=== PATIENT | female | born 1945 | race Caucasian/White ===

== ENCOUNTER 2016-06-21 18:07 | Observation (INO) | payer MEDICARE ==
[~2016-06-21] VITALS: Ht 162.6 cm; Wt 80.0 kg
[~2016-06-21 18:07] MED LIST: CEFU500T PO; FLUT9.9S NASAL
[2016-06-21 18:09] VITALS: BP 136/66; RESP 22; O2SAT 96
[2016-06-21 19:19] VITALS: BP 126/66; PULSE 74; RESP 23; O2SAT 98
[2016-06-21] MEDS ORDERED: EPINEPHrine 1 mg/mL Inj 10 MG in 0.9% Sodium Chloride 240 ML ONE (20:05)
[2016-06-21] MEDS ORDERED: 0.9% Sodium Chloride 1,000 ML IV ONE (20:05)
[2016-06-21] MEDS ORDERED: MethylprednisoLONE Sodium Succinate 62.5 mg/mL 2 mL Inj IVPUSH ONE (20:05)
[2016-06-21] MEDS ORDERED: Famotidine Inj 20 MG in IV Premix 1 EACH IV ONE (20:05)
[2016-06-21 20:48] LABS: APPEARANCE,URINE CLEAR (CLEAR,HAZY); COLOR,URINE YELLOW (YELLOW); OCCULT BLOOD,URINE NEGATIVE (NEGATIVE); UROBILINOGEN,URINE NORMAL (NORMAL)
--- NOTE | 2016-06-21 20:59 | DRSVH ---
PROCEDURE: X-RAY CHEST ONE VIEW, PORTABLE ([id number]) INDICATIONS: Altered mental status TECHNIQUE: One view of the chest was acquired. COMPARISON: [facility], CR, XR CHEST 2VW, 06/18/2015, 12:46. [facility], CR , XR CHEST 1VW (PORTABLE), 06/18/2015, 16:25. FINDINGS: Surgical changes and devices: None. Lungs and pleura: No pleural effusions or pneumothorax. Lungs are edematous. Mediastinum: Mediastinal contours appear normal. Heart size is prominently globally enlarged, to a greater degree than that present seen only 3 days ago. Bones and chest wall: No suspicious bony lesions. Overlying soft tissues appear unremarkable. IMPRESSION: Worsening chronic CHF pattern, increased cardiac silhouette. Dictated by: Hong Vieira M.D. on 06/21/2016 at 20:58 Approved by: Hong Vieira M.D. on 06/21/2016 at 20:58
--- NOTE | 2016-06-21 21:12 | DRSVH ---
PROCEDURE: CT BRAIN WITHOUT CONTRAST ([id number]) INDICATIONS: Dizziness and Horizontal nystagmus TECHNIQUE: Noncontrast 4.5 mm thick angled axial sections acquired from the foramen magnum to the vertex, with c oronal reformats. COMPARISON: None. FINDINGS: Image quality: Excellent. CSF spaces: Basal cisterns are patent. No extra-axial fluid collections. Ventricles are normal in size and shape. Brain: No midline shift. No intracranial masses or hemorrhage. Goel-white matter interface is norm al. Skull and face: Calvarium and visualized facial bones are intact, without suspicious lesions. Sinuses: Visualized sinuses and mastoids are clear. IMPRESSION: No source of current symptoms is found. The study appears normal for age. Dictated by: Hong Vieira M.D. on 06/21/2016 at 21:10 Approved by: Hong Vieira M.D. on 06/21/2016 at 21:10
[2016-06-21 21:29] LABS: BASOPHILS % (AUTO) 0.2 % (0-3); EOSINOPHILS % (AUTO) 0.2 % (0-5); MONOCYTES % (AUTO) 2.8 % (4-12); Mean Corpuscular Hemoglobin 25.8 pg (27.0-35.0); Mean Corpuscular Volume 86.8 fL (81-100); NEUTROPHILS % (AUTO) 90.9 % (40-74); Platelet Count 274 bil/L (150-400)
[2016-06-21] MEDS ORDERED: Alum-Mag Hydrox-Simeth 30 mL Suspension PO PRN (21:50)
[2016-06-21] MEDS ORDERED: Ondansetron 2 mg/mL 2 mL Inj IVPUSH PRN (21:50)
--- NOTE | 2016-06-21 21:55 | ED.REPORT ---
HPI-Dizziness / Weakness Date of Service Jun 21, 2016 ED Provider: Joshua Lewis MD History of Present Illness: Ms. 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 She has experienced similar symptoms before that resolved within 2 hours. She also has a three-week history of right ear pressure and loss of hearing, for which she was treated with antibiotics twice as an outpatient. She lives alone without any help in her house. She has received meclizine which seems to have helped with her symptoms of nausea vomiting and dizziness. 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 The findings may represent progression of reported chronic interstitial lung disease vs superimposed pulmonary edema due to cardiogenic or noncardiogenic etiologies such as atypical infection. 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 Complete sys rev & neg: except as marked. Physical Exam Physical Exam Notes: General: Elderly lady lying in bed in no acute distress, well-developed, well-nourished, appropriately interactive. HEENT: Normocephalic, atraumatic. External ears without defect. Pupils equal, round, and reactive to light and accommodation. Anicteric sclerae, moist conjunctivae, and no lid lag. Oropharynx free of erythema and cobble stoning with moist mucosa. Horizontal nystagmus present. Neck: Supple with full range of motion. No jugular venous distension. No bruits. No lymphadenopathy or thyromegaly. Cardiovascular: Regular rate and rhythm with no murmurs or gallops, with mild rubs appreciated Pulmonary: Clear to auscultation bilaterally with no crackles, wheezes, or rhonchi. Normal respiratory effort with no use of accessory muscles. Abdomen: Bowel tones present. Soft, nontender, nondistended. No hepatosplenomegaly or masses appreciated. Extremities: No clubbing, cyanosis, edema, or lymphadenopathy appreciated. Skin: Normal temperature, turgor, and texture; no rash, ulcers, or subcutaneous nodules appreciated. Neurological: Cranial nerves grossly intact. Normal muscle strength, tone, and bulk. Reflexes, coordination, and sensory function within normal limits. Psychiatric: Normal mood and affect. Alert and oriented to person, place, and time. Initial Vital Signs Vital Signs (First) Date Time Temp Pulse Resp B/P Pulse Ox O2 Delivery O2 Flow Rate FiO2 06/21/16 18:09 37.4 79 22 136/66 96 Nasal Cannula 6 Interpretation & Diagnostics Lab Results Interpretation Result Diagram: 06/21/16205406/21/162054 Test 06/21/16 20:22 06/21/16 20:55 Urine Color Yellow (YELLOW) Urine Appearance Clear (CLEAR,HAZY) Urine pH 8.0 (5.0-8.0) Urine Specific Agenda 1.020 (1.003-1.035) Urine Protein Negativemg/dL (NEG,TRACE) Urine Glucose (UA) 100mg/dL (NEGATIVE) Urine Ketones 40mg/dL (NEGATIVE) Urine Occult Blood Negative (NEGATIVE) Urine Nitrite Negative (NEGATIVE) Urine Bilirubin Negative (NEGATIVE) Urine Urobilinogen Normalmg/dL (NORMAL) Urine Leukocyte Esterase Trace (NEGATIVE) Urine RBC 0-2/hpf (0-2) Urine WBC 0-5/hpf (0-5) Urine Epithelial Cells None/hpf (NONE-MOD) Urine Crystals None seen (NONE SEEN) Urine Bacteria Few/hpf (NONE-FEW) Urine Hyaline Casts None/lpf (NONE) Urine Granular Casts None seen (NONE SEEN) Urine Waxy Casts None seen (NONE SEEN) Urine Red Blood Cell Casts None seen (NONE SEEN) Urine White Blood Cell Casts None seen (NONE SEEN) Urine Mucus Present (None Seen) Urine Trichomonas None seen (NONE SEEN) Urine Yeast None (NONE SEEN) Urinalysis Comment None Urine Culture Reflexed Indicated White Blood Count 10.0th/mm3 (3.8-10.1) Red Blood Count 4.23mil/mm3 (3.90-5.20) Hemoglobin 10.9g/dL (12.0-15.6) Hematocrit 36.7% (35.0-46.0) Mean Corpuscular Volume 86.8fL (81-100) Mean Corpuscular Hemoglobin 25.8pg (27.0-35.0) Mean Corpuscular Hemoglobin Concent 29.7% (32.0-37.0) Red Cell Distribution Width 14.4% (12.3-15.4) Platelet Count 274bil/L (150-400) Neutrophils (%) (Auto) 90.9% (40-74) Lymphocytes (%) (Auto) 5.6% (14-46) Monocytes (%) (Auto) 2.8% (4-12) Eosinophils (%) (Auto) 0.2% (0-5) Basophils (%) (Auto) 0.2% (0-3) Sodium Level 137mEq/L (134-144) Potassium Level 3.8mEq/L (3.5-5.2) Chloride Level 100mEq/L (97-108) Carbon Dioxide Level 28mmol/L (18-29) Blood Urea Nitrogen 7mg/dL (8-27) Creatinine 0.54mg/dL (0.57-1.00) Estimat Glomerular Filtration Rate 160mL/min (>59) Glucose Level 184mg/dL (60-99) Lactic Acid Level 1.1mmol/L (0.4-2.0) Calcium Level 8.9mg/dL (8.5-10.1) Magnesium Level 1.7mg/dL (1.6-2.6) Total Bilirubin 0.2mg/dL (0.0-1.2) Aspartate Amino Transf (AST/SGOT) 10U/L (0-50) Alanine Aminotransferase (ALT/SGPT) 7U/L (0-32) Alkaline Phosphatase 48U/L (25-165) Total Protein 5.8g/dL (6.4-8.4) Albumin 3.4g/dL (3.4-5.0) Procedures Procedure Notes: Re-Eval/Medical Decision Med Decision/Clinical Course Ms. Glasgow yesterday is a 8-year-old who lives alone and is currently unable to ambulate without falling due to dizziness, horizontal nystagmus, nausea and vomiting. She is not safe to go home, therefore she is to be admitted as observational status. Patient Discharge & Departure Shift Change Sign-Out Patient Care Transferred: Yes Discussed Complaint(s): Yes Laboratory Evaluation: Lab evaluation discussed Imaging Studies: Imaging discussed Response to Therapy: Unchanged Impression: Primary Impression: Peripheral vertigo Laterality: right Qualified Code: H81.391 - Other peripheral vertigo, right ear Additional Impressions: Failure to thrive Failure to thrive age range: in adult Qualified Code: R62.7 - Adult failure to thrive Ear pain, right Weakness Disposition: ADMITTED TO HOSPITAL Discharge Condition All VS Reviewed: Yes Condition: Stable Referrals: Marques Buchanan MD (PCP) EDSupervising Provider for APC: Joshua Lewis MD Attending Statement Attending attestation: I saw this patient in conjunction with the above named resident. I was present for all granda portions of the history taking and physical examination. I agree with the workup, evaluation, treatment and disposition. JOSE JUAN Ugarte MD, DO Jun 21, 2016 20:04 Joshua Lewis MD Jun 21, 2016 23:41
[2016-06-21] MEDS ORDERED: HYDROcodone-APAP 5-325 mg Tablet PO PRN (23:35)
[2016-06-21] MEDS: 0.9% Sodium Chloride 1,000 ML IV SCH (23:35)
[2016-06-21] MEDS ORDERED: TREP1TAB PO ×2 (23:46→23:57)
--- NOTE | 2016-06-21 23:54 | PCM.HPMED ---
Subjective Date of Service Jun 21, 2016 Primary Provider: Admitting Physician: Primary Care Physician: Marques Buchanan MD Attending Physician: Chief Complaint: Dizziness History of Present Illness: 71 yo F with history of CREST syndrome with subsequent pulmonary fibrosis, pulmonary hypertension, and pericardial effusions, HTN, and Hypothyroidism who presented to the ED with dizziness, nausea, and vomiting that started earlier this afternoon. She was using her computer when the room suddenly started spinning, which resulted in nausea/vomiting. She reports experiencing this intermittently in the past, with usual episodes resolving in 1-2 hours, but states the new symptoms of diaphoresis, weakness, nausea and vomiting made her come into the hospital. She denies any tinnitus, CP, cough, increase in her AGUILAR , fevers, or abdominal pain. She also report that in the past year she has been getting intermittently dizzy and has been noticing low pitch hearing loss, R>L. She denies any urinary symptoms currently, but notes that she is currently on a 2nd course of Amoxicillin for treatment of a UTI from a few weeks ago. She states that she had a right ear bulging and pressure 3 weeks ago, so she was also give Amoxicillin then. Also of note, patient was diagnosed with Colon Cancer this past summer and has not pursued treatment. She endorses diarrhea daily and uses loperamide to control it. In the ER her vitals were stable and within normal limits. She was saturating between 96 and 98% on 6 L NC. Her CMP was reassuring, but her CBC shows a hemoglobin of 10.9, white count of 10, segs of 90.9%. Her UA was positive for trace leukocytes, but no nitrites or blood. Review of Systems: Complete ROS negative except as stated in HPI Allergies Coded Allergies: Sulfa (Sulfonamide Antibiotics) (Verified Allergy, Intermediate, Nausea, Vomiting, 06/21/16) morphine (Verified Allergy, Unknown, HIVES, 06/21/16) Home Medications She is on 3 medications for pulmonary hypertension that we do not have here and she will be bringing in herself PMH CREST syndrome Pulmonary Fibrosis Pulmonary Hypertension Pericardial Effusions Essential HTN Hypothyroidism GERD Colon Cancer diagnosed via CT in 10/2015 Surgical History Tonsillectomy Cholecystectomy Partial Hysterectomy Left Knee x3 Esophageal tightening due to GERD Family History Lung Cancer Lymphoma Colon Cancer Social History Hx Alcohol Use: No Hx Substance Use: No Living Arrangement: Alone Exam Vital Signs Vital Sign - Last Date Time Temp Pulse Resp B/P Pulse Ox O2 Delivery O2 Flow Rate FiO2 06/21/16 19:19 74 23 126/66 98 Nasal Cannula 6 06/21/16 18:09 37.4 Exam Gen - Age appropriate female laying comfortably in bed and on oxygen in [facility], [facility]. Membranes dry but pink in color. No scleral icterus or pallor. Hearing decreased on right side. Right beating Horizontal Nystagmus. Also seen on test of Skew and Head impulse testing. Neck - Supple, without pain, full ROM. No JVD noted Cardiac - RRR, with 3/6 coarse systolic murmur. Lungs - CTA bilaterally, decreased air movement but no wheezes/rales/rhonchi. Abd - Soft, NT/ND, +BS. No organomegaly, guarding, or masses. Extremities - No clubbing or cyanosis, no edema. Neuro -CN 2-12 intact. Muscle strength 5/5 in all extremities, reflexes normal. Psych - Normal mood and affect, appropriate in response. Lab and Diagnostics Result Diagram: 06/21/162054 X-Rays, CTs and MRIs X-RAY CHEST ONE VIEW, PORTABLE ([id number]) IMPRESSION: Worsening chronic CHF pattern, increased cardiac silhouette. Dictated by: Hong Vieira M.D. on 06/21/2016 at 20:58 CT BRAIN WITHOUT CONTRAST ([id number]) IMPRESSION: No source of current symptoms is found. The study appears normal for age. Dictated by: Hong Vieira M.D. on 06/21/2016 at 21:10 Assessment & Plan 71 yo F with h/o CREST syndrome, Pulmonary fibrosis with Pulmonary HTN, recently diagnosed Colon Cancer, and Hypothyroidism who presents for acute onset of Vertigo today. With her reassuring head CT and HiNTS exam, this is unlikely a central source, but will likely need an MRI to r/o. From her history of low pitch hearing loss and intermittent dizziness, Meniere's disease is suspicious. She did report a recent right ear infection that required antibiotics, but ear exam was unremarkable. She also has an abnormal UA and has been treated with antibiotics for a UTI infection in the past 2 weeks. This could also be a cause of her vertigo. #Vertigo, acute -Currently dizzy, but n/v has improved. Will continue Meclizine and anti- emetics medications prn. -HiNTS exam reassuring and initial brain CT unremarkable. DDx, posterior infarct , mets disease, labyrinthitis, Meniere's, infection -Although less likely, will require MRI to rule out posterior infarcts or metastatic disease from her Colon Cancer. Will defer to Day team to order. -Will also await UA culture before starting any Antibiotics since patient does not complain of urinary symptoms currently. This could also be a source of her dizziness. -With her complaint of hearing loss in the past year and transient intermittent dizziness, she likely has Meniere's disease and should be evaluated by ENT as an outpatient. Low dose diuretic and low sodium diet would be helpful for prophylaxis on discharge. #CREST syndrome with resulting pulmonary fibrosis and pulmonary hypertension, POA -Patient is on 8L O2 at home at baseline, she is currently stable. She plans to bring in her home medications: Orenitram, Adcirca, and Letairis -Her Bonbon Cream Warmer is in [place]. -Continue home meds. #Colon Cancer diagnosed via CT in 10/2015, POA -Per patient, she wishes not to pursue any further treatment for this condition. -She does continue to have diarrhea daily and uses Loperamide frequently for symptomatic control -Consider Palliative/Hospice consult -Loperamide prn diarrhea and IV NS 100mls/hr for fluids #Hypothyroidism, POA -Patient reports her LT4 was recently titrated upwards last year -TSH/FT4 pending -Continue LT4 #GERD, POA -Patient reports multiple surgeries to tighten lower esophageal sphincter by Dr. Cr Yadav -H2 vito for prophylaxis #Hypertension, chronic, POA -Stable, currently not on any medications for HTN per patient. Vicodin 5/325mg prn pain Bowel Regimen prn constipation Pain Evaluation: Adequate Pain Control VTE Prophylaxis: Sub-Q Heparin (Unfractionated) Resuscitation Status: DNR/DNI:Do Not Resuscitate/Intubate Attending Statement The patient was seen and examined together with Dr. Lindsay on 06/21/16 and I agree with the history, exam and plan as outlined in the note above. Anthony Lindsay DO Jun 21, 2016 21:44 Roscoe Melgoza MD Jun 21, 2016 23:58
[2016-06-21] MEDS ORDERED: MYCO500T3 PO (23:57)
[2016-06-21] MEDS ORDERED: LEVO75TA4 PO (23:57)
[2016-06-21] MEDS ORDERED: TORS20TA3 PO (23:57)
[2016-06-21] MEDS ORDERED: PRD5T PO (23:57)
[2016-06-21] MEDS ORDERED: SPIR25TA3 PO (23:57)
[2016-06-21] MEDS ORDERED: ATRV10T PO (23:57)
[2016-06-21] MEDS ORDERED: TRAZ-118 PO (23:57)
[2016-06-21] MEDS ORDERED: AMBR10TA3 PO (23:57)
[2016-06-21] MEDS ORDERED: CALC600T12 PO (23:57)
[2016-06-21] MEDS ORDERED: TADA20TA31 PO (23:57)
[2016-06-21] MEDS ORDERED: ASPI-973 PO (23:57)
[2016-06-21] MEDS ORDERED: NIFE60TA62 PO (23:57)
[2016-06-21] MEDS ORDERED: ESOM40CA41 PO (23:57)
[2016-06-22 00:22] VITALS: BP 129/71; PULSE 76; RESP 17
[2016-06-22] MEDS: Heparin 5,000 Unit/mL Inj SUBQ SCH ×2 (00:30→08:30)
[2016-06-22] MEDS: TREPROSTINIL DIOLAMINE 1 MG PO SCH ×2 (00:48→08:30)
[2016-06-22] MEDS ORDERED: POTA10TA12 PO (01:47)
[2016-06-22 01:48] VITALS: PULSE 78
--- NOTE | 2016-06-22 03:47 | NUR ---
Admit to [facility] Received phone report from ED at 2200, pt arrived to floor at 2315 via gurney accompanied by ED RN and daughter, alert and oriented x4, able to ambulate to bed with 2PA Assist, notable severe BLE weakness, on 02 @ 8l/min,enccouraged to use face mask instead of Nasal cannula, pt refused, IV on LAC noted infiltrated, Dc'd tip intact, restarted one on L arm running IVF, pt refused skin check, pt refused VTE device and heparin, placed pt on continuous pulse ox via earlobe sats stable, pt denies pain/discomfort,pt daughter at bedside, Mojgan MCKEON, RADHA request for family to bring copy of polst, and home meds that are not in formulary, oriented pt to room and call light in reach , qhrly checks will continue to monitor.
[2016-06-22 05:08] VITALS: BP 145/72; PULSE 88; RESP 17; O2SAT 98
[2016-06-22 05:39] VITALS: PULSE 73
[2016-06-22 07:13] LABS: BASOPHILS % (AUTO) 0.3 % (0-3); EOSINOPHILS % (AUTO) 0.6 % (0-5); MONOCYTES % (AUTO) 5.2 % (4-12); Mean Corpuscular Hemoglobin 26.4 pg (27.0-35.0); Mean Corpuscular Volume 86.8 fL (81-100); NEUTROPHILS % (AUTO) 86.3 % (40-74); Platelet Count 253 bil/L (150-400)
[2016-06-22 07:53] VITALS: BP 121/65; PULSE 77; RESP 18; O2SAT 100
[2016-06-22] MEDS ORDERED: Calcium Carbonate (Oyster Shell) 500 mg Tablet PO SCH (08:00)
[2016-06-22] MEDS ORDERED: predniSONE 5 mg Tablet PO SCH (08:30)
[2016-06-22] MEDS ORDERED: NIFEdipine 30 mg ER24 Tablet PO SCH (08:30)
[2016-06-22] MEDS ORDERED: TADALAFIL 40 MG PO SCH (08:30)
--- NOTE | 2016-06-22 10:22 | NUR ---
Social Work: Initial Assessment Data & Assessment: EMR Reviewed. See Initial Assessment. Foundry Operator met with patient at bedside to discuss discharge planning, SW role reviewed and initial assessment completed. Patient was alert and oriented x3. Patient does not have a re-admit score. Patient confirmed that her PCP is Marques Buchanan MD and insurance is [employer]. Prior to admission patient lived in a single level home with five steps to enter. patient also has a ramp on her home. Patient does not have any VA or LTC benefits. Patient does not have any HH or SNF. Patient is independent with ADL's. Patient states that she does have a DPOA, Margie Douglas- [phone], and she will have her daughter to bring a copy. Patient has a walker, BSC, SC and electronic WC that she inherited from someone, but rarely utilizes. Patient does not have any discharge needs at the current time. Patient is likely to discharge home with no needs via POV. SW will continue to follow. Plan: Patient likely to discharge home with no needs. patient daughter, Margie Douglas- [phone], will pick her up when discharged. SW will continue to follow Sang Gandara LMSW, NICOLE Addendum: 06/22/16 at 1032 by SANG CATHERINE Amended: Links added.
[2016-06-22 10:52] VITALS: PULSE 82
--- NOTE | 2016-06-22 10:55 | NUR ---
Case Management: VILLANUEVA and Medicare Part D given and explained. Palma LENTZ, RN
[2016-06-22] MEDS: 0.9% Sodium Chloride 1,000 ML IV SCH (11:32)
[2016-06-22] MEDS ORDERED: MECL-114 PO (12:39)
--- NOTE | 2016-06-22 12:41 | PCM.DIMED ---
Discharge Instructions Date of Service Jun 22, 2016 Dates of Hospitalization Jun 21, 2016 at 22:25 Discharge Diagnosis Discharge Diagnosis Acute vertigo; diarrhea; dehydration Medication Instructions If you have further episodes of vertigo you may try meclizine (Antivert) to see if this helps. Diet No restrictions Activity No restrictions Patient Instructions Maintain good hydration, especially if you are expressing diarrhea related to antibiotics for your ear infection. Make note of the circumstances of any further episodes of vertigo and report these to your primary care doctor. Follow-up Provider: Marques Buchanan MD Follow-up with PCP in: 1 week Myles Cody MD Jun 22, 2016 12:40
--- NOTE | 2016-06-22 12:45 | PCM.DC.MED ---
Discharge Summary Date of Service Jun 22, 2016 Dates of Hospitalization Date of Hospital Admission Jun 21, 2016 at 22:25 Date of Discharge: Jun 22, 2016 Providers: Admitting Physician: Roscoe Melgoza MD Primary Care Physician: Marques Buchanan MD Attending Physician: Roscoe Melgoza MD Diagnosis at Time of Discharge Diagnosis at Time of Discharge Acute vertigo; diarrhea; dehydration Procedures XRay, CTs & MRIs X-RAY CHEST ONE VIEW, PORTABLE ([id number]) IMPRESSION: Worsening chronic CHF pattern, increased cardiac silhouette. Dictated by: Hong Vieira M.D. on 06/21/2016 at 20:58 CT BRAIN WITHOUT CONTRAST ([id number]) IMPRESSION: No source of current symptoms is found. The study appears normal for age. Dictated by: Hong Vieira M.D. on 06/21/2016 at 21:10 Brief History History of Present Illness (per admission note): 71 yo F with history of CREST syndrome with subsequent pulmonary fibrosis, pulmonary hypertension, and pericardial effusions, HTN, and Hypothyroidism who presented to the ED with dizziness, nausea, and vomiting that started earlier this afternoon. She was using her computer when the room suddenly started spinning, which resulted in nausea/vomiting. She reports experiencing this intermittently in the past, with usual episodes resolving in 1-2 hours, but states the new symptoms of diaphoresis, weakness, nausea and vomiting made her come into the hospital. She denies any tinnitus, CP, cough, increase in her AGUILAR , fevers, or abdominal pain. She also report that in the past year she has been getting intermittently dizzy and has been noticing low pitch hearing loss, R>L. She denies any urinary symptoms currently, but notes that she is currently on a 2nd course of Amoxicillin for treatment of a UTI from a few weeks ago. She states that she had a right ear bulging and pressure 3 weeks ago, so she was also give Amoxicillin then. Also of note, patient was diagnosed with Colon Cancer this past summer and has not pursued treatment. She endorses diarrhea daily and uses loperamide to control it. In the ER her vitals were stable and within normal limits. She was saturating between 96 and 98% on 6 L NC. Her CMP was reassuring, but her CBC shows a hemoglobin of 10.9, white count of 10, segs of 90.9%. Her UA was positive for trace leukocytes, but no nitrites or blood. Hospital Course 71 yo F with h/o CREST syndrome, Pulmonary fibrosis with Pulmonary HTN, recently diagnosed Colon Cancer, and Hypothyroidism who presents for acute onset of Vertigo today. With her reassuring head CT and HiNTS exam, this is unlikely a central source, but will likely need an MRI to r/o. From her history of low pitch hearing loss and intermittent dizziness, Meniere's disease is suspicious. She did report a recent right ear infection that required antibiotics, but ear exam was unremarkable. She also has an abnormal UA and has been treated with antibiotics for a UTI infection in the past 2 weeks. This could also be a cause of her vertigo. #Vertigo, acute. No bulbar deficits. No indication for stroke workup - Symptoms resolve fully in less than 24 hours. History is suggestion of dehydration related to recent diarrhea (antibiotics) and ear infection possibly influencing labyrinth function. - Patient is stable for outpatient follow-up Other problems stable: #CREST syndrome with resulting pulmonary fibrosis and pulmonary hypertension, POA -Patient is on 8L O2 at home at baseline, she is currently stable. She plans to bring in her home medications: Orenitram, Adcirca, and Letairis -Her Slab Stripper is in [place]. -Continue home meds. #Colon Cancer diagnosed via CT in 10/2015, POA -Per patient, she wishes not to pursue any further treatment for this condition. -She does continue to have diarrhea daily and uses Loperamide frequently for symptomatic control #Hypothyroidism, POA -Patient reports her LT4 was recently titrated upwards last year -TSH/FT4 pending -Continue LT4 #GERD, POA -Patient reports multiple surgeries to tighten lower esophageal sphincter by Dr. Cr Yadav -H2 vito for prophylaxis #Hypertension, chronic, POA -Stable, currently not on any medications for HTN per patient. . Exam Vital Signs (Last) Date Time Temp Pulse Resp B/P Pulse Ox O2 Delivery O2 Flow Rate FiO2 06/22/16 10:52 82 06/22/16 08:45 Supplement Oxygen 06/22/16 07:53 36.8 18 121/65 100 8.00 Exam General: Mildly obese woman in no acute distress HEENT: sclerae anicteric, oral mucosa moist Neck: no JVD, supple, no nystagmus or vertigo with neck movements Chest: clear to auscultation Cardiac: S1S2, regular Abdomen: BS normal, non-tender Extremities: No edema Neuro: A&O, cranial nerves symmetric, no nystagmus, finger to nose and rapid alternating movements normal, motor strength 5/5, coordination normal, ambulation normal Test 06/21/16 20:22 06/21/16 20:55 06/22/16 06:10 Urine Color Yellow (YELLOW) Urine Appearance Clear (CLEAR,HAZY) Urine pH 8.0 (5.0-8.0) Urine Specific [place] 1.020 (1.003-1.035) Urine Protein Negativemg/dL (NEG,TRACE) Urine Glucose (UA) 100mg/dL (NEGATIVE) Urine Ketones 40mg/dL (NEGATIVE) Urine Occult Blood Negative (NEGATIVE) Urine Nitrite Negative (NEGATIVE) Urine Bilirubin Negative (NEGATIVE) Urine Urobilinogen Normalmg/dL (NORMAL) Urine Leukocyte Esterase Trace (NEGATIVE) Urine RBC 0-2/hpf (0-2) Urine WBC 0-5/hpf (0-5) Urine Epithelial Cells None/hpf (NONE-MOD) Urine Crystals None seen (NONE SEEN) Urine Bacteria Few/hpf (NONE-FEW) Urine Hyaline Casts None/lpf (NONE) Urine Granular Casts None seen (NONE SEEN) Urine Waxy Casts None seen (NONE SEEN) Urine Red Blood Cell Casts None seen (NONE SEEN) Urine White Blood Cell Casts None seen (NONE SEEN) Urine Mucus Present (None Seen) Urine Trichomonas None seen (NONE SEEN) Urine Yeast None (NONE SEEN) Urinalysis Comment None Urine Culture Reflexed Indicated Lactic Acid Level 1.1mmol/L (0.4-2.0) Magnesium Level 1.7mg/dL (1.6-2.6) Total Bilirubin 0.2mg/dL (0.0-1.2) Aspartate Amino Transf (AST/SGOT) 10U/L (0-50) Alanine Aminotransferase (ALT/SGPT) 7U/L (0-32) Alkaline Phosphatase 48U/L (25-165) Total Protein 5.8g/dL (6.4-8.4) Albumin 3.4g/dL (3.4-5.0) Procalcitonin < 0.05ng/mL (See Comment) Thyroid Stimulating Hormone (TSH) 3.300uIU/mL (0.450-4.500) Free Thyroxine 1.23ng/dL (0.82-1.77) White Blood Count 6.9th/mm3 (3.8-10.1) Red Blood Count 3.87mil/mm3 (3.90-5.20) Hemoglobin 10.2g/dL (12.0-15.6) Hematocrit 33.6% (35.0-46.0) Mean Corpuscular Volume 86.8fL (81-100) Mean Corpuscular Hemoglobin 26.4pg (27.0-35.0) Mean Corpuscular Hemoglobin Concent 30.4% (32.0-37.0) Red Cell Distribution Width 14.3% (12.3-15.4) Platelet Count 253bil/L (150-400) Neutrophils (%) (Auto) 86.3% (40-74) Lymphocytes (%) (Auto) 7.5% (14-46) Monocytes (%) (Auto) 5.2% (4-12) Eosinophils (%) (Auto) 0.6% (0-5) Basophils (%) (Auto) 0.3% (0-3) Sodium Level 138mEq/L (134-144) Potassium Level 4.1mEq/L (3.5-5.2) Chloride Level 102mEq/L (97-108) Carbon Dioxide Level 30mmol/L (18-29) Blood Urea Nitrogen 7mg/dL (8-27) Creatinine 0.58mg/dL (0.57-1.00) Estimat Glomerular Filtration Rate 147mL/min (>59) Glucose Level 156mg/dL (60-99) Calcium Level 8.9mg/dL (8.5-10.1) Discharge Medications Discharge Medications Ambrisentan (Letairis) 10 Mg Tablet 10 MG PO DAILY (Reported) Aspirin (Aspirin) 81 Mg Tablet 81 MG PO DAILY (Reported) Atorvastatin (Lipitor) 10 Mg Tab 10 MG PO DAILY (Reported) Calcium Carbonate (Calcium) 600 Mg Tablet 600 MG PO BID (Reported) Cefuroxime Axetil (Ceftin) 500 Mg Tablet 500 MG PO BID Prescribed by: JAMILA STEVENS DO Esomeprazole Magnesium (Nexium) 40 Mg Capsule.dr 40 MG PO DAILY (Reported) Fluticasone Propionate (Flonase Allergy Relief) 50 Mcg/Actuation [place].susp 1 SPRAY NASAL DAILY Prescribed by: JAMILA STEVENS DO Levothyroxine (Levothyroxine) 75 Mcg Tablet 75 MCG PO DAILY (Reported) Meclizine (Bonine) 25 Mg Tab.chew 25 MG PO TID Prescribed by: PHYLLIS BYERS MD Mycophenolate Mofetil (Mycophenolate Mofetil) 500 Mg Tablet 500 MG PO BID ( Reported) Nifedipine ER (Nifedipine ER) 60 Mg Tab.er.24 60 MG PO DAILY (Reported) Potassium Chloride ER (Potassium Chloride ER) 10 Meq Tablet 10 MEQ PO 5XD ( Reported) TAKE WITH FOOD Prednisone (PredniSONE) 5 Mg Tab 5 MG PO DAILY (Reported) Spironolactone (Spironolactone) 25 Mg Tablet 25 MG PO DAILY (Reported) Tadalafil (Adcirca) 20 Mg Tablet 40 MG PO DAILY (Reported) Torsemide (Torsemide) 20 Mg Tablet 20 MG PO DAILY (Reported) Trazodone (Trazodone) 100 Mg Tablet 100 MG PO HS (Reported) Treprostinil Diolamine (Orenitram ER) 1 Mg Tablet.er 2 MG PO TID (Reported) Additional med instructions If you have further episodes of vertigo you may try meclizine (Antivert) to see if this helps. Followup Plan Disposition: Home Discharge Diet: No restrictions Discharge Activity: No restrictions Patient Instructions Maintain good hydration, especially if you are expressing diarrhea related to antibiotics for your ear infection. Make note of the circumstances of any further episodes of vertigo and report these to your primary care doctor. Follow-up Provider: Marques Buchanan MD Follow-up with PCP in: 1 week Time spent 25 minutes copies to: Marques Buchanan MD, Jeffrey W MD Jun 22, 2016 12:45
--- NOTE | 2016-06-22 13:46 | NUR ---
Discharge Pt discharged at 1345. She was given discharge instructions and instructions for follow up care. She confirmed understanding of these instructions. She was given 1 prescription to take with her. She left with all of her belongings. She was brought by unit staff via wheelchair to the main entrance of the hospital (On portable oxygen). Her daughter picked her up and the entrance and would be driving her home.
== END 2016-06-22 13:50 | disposition home or self-care (01) ==
LOC: EDBD 18:07 → EDUNIT# 18:07 → SED 18:26 → MOC 22:25
PROVIDERS: ADMIT Hospitalist; ATTEND Hospitalist
DX: R42 Dizziness and giddiness (principal); R19.7 Diarrhea, unspecified; E86.0 Dehydration; M34.1 CR(E)ST syndrome; J84.10 Pulmonary fibrosis, unspecified; I27.2 Other secondary pulmonary hypertension; I10 Essential (primary) hypertension; I31.3 Pericardial effusion (noninflammatory); E03.9 Hypothyroidism, unspecified; C18.9 Malignant neoplasm of colon, unspecified; K21.9 Gastro-esophageal reflux disease without esophagitis; Z79.82 Long term (current) use of aspirin; Z79.52 Long term (current) use of systemic steroids; Z66 Do not resuscitate; Z99.81 Dependence on supplemental oxygen
CPT/HCPCS: 36415; 70450; 71010; 80048; 80053; 81000; 81002; 82308; 83605; 83735; 84439; 84443; 85025; 87086; 87088; 96360; 99285; G0378; J7030; J7512; J7517

== ENCOUNTER 2016-08-05 14:14 | Emergency (ER) | payer MEDICARE ==
[~2016-08-05] VITALS: Ht 162.6 cm; Wt 76.4 kg
[~2016-08-05 14:14] MED LIST changes: +AMBR10TA3 PO; +ASPI-973 PO; +ATRV10T PO; +CALC600T12 PO; +ESOM40CA41 PO; +LEVO75TA4 PO; +MECL-114 PO; +MYCO500T3 PO; +NIFE60TA62 PO; +POTA10TA12 PO; +PRD5T PO; +SPIR25TA3 PO; +TADA20TA31 PO; +TORS20TA3 PO; +TRAZ-118 PO; +TREP1TAB PO
[2016-08-05 14:19] VITALS: BP 129/64; PULSE 88; RESP 10; O2SAT 100
--- NOTE | 2016-08-05 15:29 | ED.REPORT ---
HPI-General Illness Date of Service Aug 05, 2016 ED Provider: Dr. Sexton Pt is a 71 y/o female w/ a hx of vertigo, pulmonary fibrosis/hypertension on 8L home O2, HTN, presenting to the ED c/o spinning sensation dizziness onset today. She c/o associated nausea and vomiting. The patient was admitted 6 weeks ago for vertigo which subsequently resolved. She went to an ENT physician today and was told that she has "no movement in her right ear" and had a right ear tube placed. The physician apparently wasn't sure it was her ear that was causing this and told her that she should go to the ED to have an MRI. Nursing Notes Stated Complaint: DIZZY/NAUSEATED Chief Complaint: General Complaint Nursing Notes Reviewed: Yes Allergies: Coded Allergies: Sulfa (Sulfonamide Antibiotics) (Verified Allergy, Intermediate, Nausea, Vomiting, 06/21/16) morphine (Verified Allergy, Unknown, HIVES, 06/21/16) Scheduled Ambrisentan (Letairis) 10 Mg Tablet 10 MG PO DAILY Aspirin (Aspirin) 81 Mg Tablet 81 MG PO DAILY Atorvastatin (Lipitor) 10 Mg Tab 10 MG PO DAILY Calcium Carbonate (Calcium) 600 Mg Tablet 600 MG PO BID Cefuroxime Axetil (Ceftin) 500 Mg Tablet 500 MG PO BID Esomeprazole Magnesium (Nexium) 40 Mg Capsule.dr 40 MG PO DAILY Fluticasone Propionate (Flonase Allergy Relief) 50 Mcg/Actuation [place].susp 1 SPRAY NASAL DAILY Levothyroxine (Levothyroxine) 75 Mcg Tablet 75 MCG PO DAILY Meclizine (Bonine) 25 Mg Tab.chew 25 MG PO TID Mycophenolate Mofetil (Mycophenolate Mofetil) 500 Mg Tablet 500 MG PO BID Nifedipine ER (Nifedipine ER) 60 Mg Tab.er.24 60 MG PO DAILY Potassium Chloride ER (Potassium Chloride ER) 10 Meq Tablet 10 MEQ PO 5XD TAKE WITH FOOD Prednisone (PredniSONE) 5 Mg Tab 5 MG PO DAILY Spironolactone (Spironolactone) 25 Mg Tablet 25 MG PO DAILY Tadalafil (Adcirca) 20 Mg Tablet 40 MG PO DAILY Torsemide (Torsemide) 20 Mg Tablet 20 MG PO DAILY Trazodone (Trazodone) 100 Mg Tablet 100 MG PO HS Treprostinil Diolamine (Orenitram ER) 1 Mg Tablet.er 2 MG PO TID Scheduled PRN Meclizine (Bonine) 25 Mg Tab.chew 25 MG PO TID PRN PRN For Dizziness General Time Seen by MD: 15:29 Chief Complaint Dizziness Hx Obtained From: Patient Arrived By: Walk-in Sudden in Onset?: No Onset Occurred: 1 - 4 hours ago Symptom Duration: Since onset Severity: Current: No pain currently Severity: Maximum: No pain Recent Healthcare: Recent doctor visit, Recent hospitalization, Recent testing , Previous diagnosis, Prior workup Similar Sx Previous: Yes Past Medical History 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 Past Medical History CREST syndrome Pulmonary Fibrosis Pulmonary Hypertension Pericardial Effusions Essential HTN Hypothyroidism GERD Colon Cancer diagnosed via CT in 10/2015 Past Surgical History Tonsillectomy Cholecystectomy Partial Hysterectomy Left Knee x3 Esophageal tightening due to GERD Family History Lung Cancer Lymphoma Colon Cancer Smoking History Unknown if Ever Smoker Social History Alcohol Use: Denies alcohol use Drug Use: Denies drug use Ambulatory Status Independent Review of Systems Full Review of Systems Constitutional: Denies: Chills, Fever Respiratory: Denies: Non-productive cough, Shortness of breath Cardiovascular: Denies: Chest pain, Edema GI: Reports: Nausea, Vomiting, Denies: Abdominal pain Neurologic: Reports: Dizziness, Spinning sensation, Denies: Focal weakness, Numbness, Seizure, Shaking, Slurred speech, Unable to speak, Vision change Complete sys rev & neg: except as marked. Physical Exam Vital Signs Vital Signs Date Time Temp Pulse Resp B/P Pulse Ox O2 Delivery O2 Flow Rate FiO2 08/05/16 14:19 35.7 88 10 129/64 100 Nasal Cannula 8 Initial VS: Reviewed, Vital signs normal Head / Eyes: Atraumatic, Normocephalic, PERRL Neck: Supple, Full range of motion Respiratory: Breath sounds normal, Clear to auscultation, No respiratory distress Cardiovascular: Regular rate & rhythm, Heart sounds normal, Intact distal pulses Abdomen / GI: Soft, Non-tender, No distention Extremities: Vascular intact, Neuro intact, No swelling, No tenderness Skin: Warm, Dry, No cyanosis Psychiatric: Mood/affect normal, Behavior normal, Normal thought content General/Constitutional: Awake, Alert, No acute distress, Well appearing, Cooperative, Not toxic appearing ENT: Atraumatic, Airway patent, Mucous membranes moist Tympanostomy tube in right ear Neurologic: Oriented X3, Speech NL, No motor deficits, No sensory deficits, CN II - XII intact Ataxic gait Interpretation & Diagnostics Lab Results Interpretation Result Diagram: 08/05/16 1720 Test 08/05/16 17:20 08/05/16 17:56 White Blood Count 11.4th/mm3 (3.8-10.1) Red Blood Count 4.53mil/mm3 (3.90-5.20) Hemoglobin 11.9g/dL (12.0-15.6) Hematocrit 38.9% (35.0-46.0) Mean Corpuscular Volume 85.9fL (81-100) Mean Corpuscular Hemoglobin 26.3pg (27.0-35.0) Mean Corpuscular Hemoglobin Concent 30.6% (32.0-37.0) Red Cell Distribution Width 15.0% (12.3-15.4) Platelet Count 291bil/L (150-400) Neutrophils (%) (Auto) 84.6% (40-74) Lymphocytes (%) (Auto) 7.2% (14-46) Monocytes (%) (Auto) 6.2% (4-12) Eosinophils (%) (Auto) 1.3% (0-5) Basophils (%) (Auto) 0.3% (0-3) Re-Eval/Medical Decision Med Decision/Clinical Course Overall no signs or symptoms of stroke and seems overall low risk however, patient failed the red tests due to ataxia and listing to the right side. For this reason an MRI will be obtained. Care transferred to Dr. Sher Time of Eval: 16:06 Re-Evaluation/Progress Note: Dizziness improved with Meclazine. Informed pt of need for MRI. Counseled Regarding: Diagnosis, Lab results Discharge & Departure Primary Impression: Vertigo Discharge Condition All VS Reviewed: Yes Condition: Stable Referrals: Susana Jay MD (PCP) Care Transferred to: Dr. José Miguel Sher Care Transferred at: 17:51 Scribsammy Attestation Portions of this note were transcribed by Shubham Bishop. I, Dr. Sexton personally performed the history, physical exam and medical decision-making; I reviewed and confirmed the accuracy of the information in the transcribed note. Signed by Kelechi Byrd, 08/05/16 - 1700 copies to: Susana Jya MD, Timothy S DO Aug 05, 2016 15:29 SHUBHAM BISHOP Aug 05, 2016 15:33
[2016-08-05] MEDS ORDERED: 0.9% Sodium Chloride 1,000 ML IV ONE (16:44)
[2016-08-05] MEDS ORDERED: MECL-114 PO (16:59)
[2016-08-05 17:39] LABS: BASOPHILS % (AUTO) 0.3 % (0-3); EOSINOPHILS % (AUTO) 1.3 % (0-5); MONOCYTES % (AUTO) 6.2 % (4-12); Mean Corpuscular Hemoglobin 26.3 pg (27.0-35.0); Mean Corpuscular Volume 85.9 fL (81-100); NEUTROPHILS % (AUTO) 84.6 % (40-74); Platelet Count 291 bil/L (150-400)
--- NOTE | 2016-08-05 19:01 | DRSVH ---
PROCEDURE: MRI BRAIN WITHOUT CONTRAST ([id number]) INDICATIONS: ataxia TECHNIQUE: Non-contrast axial T1 spin echo, axial T2 fast spin echo, sagittal and axial FLAIR, coronal T2 fast s pin echo, axial gradient echo, axial diffusion and ADC through the brain. COMPARISON: [facility], CT, CT BRAIN WO CON, 06/21/2016, 20:40. FINDINGS: Image quality: Partially degraded by motion artifact. CSF spaces: Ventricles appear symmetric in size and shape. Basal cisterns are patent. No extra-axi al fluid collections. Brain: No intracranial bleeds or mass effects. There is cerebral volume loss for age. There are pe riventricular and deep white matter chronic small vessel ischemic changes. Brainstem appears normal. Diffusion-weighted images show no acute ischemic insults. No chronic ischemic insults. Normal int ravascular flow voids are present. Skull and face: Calvarial bone marrow is normal in signal. Orbits are normal. Sinuses: Large amount of right mastoid fluid. Sinuses and mastoids are otherwise clear. IMPRESSION: 1. Severe right mastoiditis. 2. No acute intracranial abnormality. No recent infarct. 3. Mild volume loss and small vessel ischemic disease. Dictated by: Elsi Bianchi M.D. on 08/05/2016 at 18:58 Approved by: Elsi Bianhci M.D. on 08/05/2016 at 18:59
[2016-08-05 20:20] VITALS: PULSE 93; RESP 16; O2SAT 96
== END 2016-08-05 20:21 | disposition home or self-care (01) ==
LOC: SED 14:14
DX: H70.91 Unspecified mastoiditis, right ear (principal); E86.9 Volume depletion, unspecified; I67.9 Cerebrovascular disease, unspecified; I27.2 Other secondary pulmonary hypertension; K21.9 Gastro-esophageal reflux disease without esophagitis; Z85.038 Personal history of other malignant neoplasm of large intestine; Z79.82 Long term (current) use of aspirin; Z88.2 Allergy status to sulfonamides; Z88.5 Allergy status to narcotic agent
CPT/HCPCS: 36415; 70551; 80053; 84484; 85025; 96360; 99285; J7030

== ENCOUNTER 2016-09-09 16:44 | Inpatient (IN) | payer MEDICARE ==
[~2016-09-09] VITALS: Ht 162.6 cm; Wt 76.6 kg
--- NOTE | 2016-09-09 16:58 | ED.REPORT ---
HPI-General Illness Date of Service Sep 09, 2016 ED Provider: Dr. Titus Stubbs 71 year old female with a history of CREST syndrome, Pulmonary Fibrosis, Pulmonary Hypertension, Pericardial Effusions, Essential HTN, Hypothyroidism, GERD, Colon Cancer diagnosed via CT in 10/2015 and on 8L O2 at home, presents to the ER via EMS transferred from the [facility] with concern for cardiac tamponade. Pt presented with SOB and was noted to be bradycardic. Her SOB is worse with exertion. She also reports increased productive cough. Nursing Notes Stated Complaint: BRADYCARDIA Nursing Notes Reviewed: Yes Allergies: Coded Allergies: Sulfa (Sulfonamide Antibiotics) (Verified Allergy, Intermediate, Nausea, Vomiting, 09/09/16) morphine (Verified Allergy, Unknown, HIVES, 09/09/16) Scheduled Ambrisentan (Letairis) 10 Mg Tablet 10 MG PO DAILY Aspirin (Aspirin) 81 Mg Tablet 81 MG PO DAILY Atorvastatin (Lipitor) 10 Mg Tab 10 MG PO DAILY Calcium Carbonate (Calcium) 600 Mg Tablet 600 MG PO BID Esomeprazole Magnesium (Nexium) 40 Mg Capsule.dr 40 MG PO DAILY Fluticasone Propionate (Flonase Allergy Relief) 50 Mcg/Actuation [place]in[place]el.susp 1 SPRAY NASAL DAILY Levothyroxine (Levothyroxine) 75 Mcg Tablet 75 MCG PO DAILY Mycophenolate Mofetil (Mycophenolate Mofetil) 500 Mg Tablet 500 MG PO BID Nifedipine ER (Nifedipine ER) 60 Mg Tab.er.24 60 MG PO DAILY Potassium Chloride ER (Potassium Chloride ER) 10 Meq Tablet 10 MEQ PO 5XD TAKE WITH FOOD Prednisone (PredniSONE) 5 Mg Tab 5 MG PO DAILY Spironolactone (Spironolactone) 25 Mg Tablet 25 MG PO DAILY Tadalafil (Adcirca) 20 Mg Tablet 40 MG PO DAILY Torsemide (Torsemide) 20 Mg Tablet 20 MG PO DAILY Trazodone (Trazodone) 100 Mg Tablet 100 MG PO HS Treprostinil Diolamine (Orenitram ER) 1 Mg Tablet.er 2 MG PO TID General Time Seen by MD: 17:00 Chief Complaint Other (SOB) Hx Obtained From: Patient, Other family..., EMS Arrived By: Ambulance Sudden in Onset?: No Symptom Duration: Since onset Associated with: Reports: Cough, Denies: Vomiting Pertinent Negative: Relieved by nothing Similar Sx Previous: Yes Past Medical History Past Medical History Notes: 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 Past Medical History CREST syndrome Pulmonary Fibrosis Pulmonary Hypertension Pericardial Effusions Essential HTN Hypothyroidism GERD Colon Cancer diagnosed via CT in 10/2015 Past Surgical History Tonsillectomy Cholecystectomy Partial Hysterectomy Left Knee x3 Esophageal tightening due to GERD Family History Lung Cancer Lymphoma Colon Cancer Smoking History Unknown if Ever Smoker Social History Alcohol Use: Denies alcohol use Drug Use: Denies drug use Ambulatory Status Independent Review of Systems Full Review of Systems Constitutional: Denies: Fever Respiratory: Reports: Dyspnea on exertion, Prod cough, green, Shortness of breath Cardiovascular: Reports: Edema Complete sys rev & neg: except as marked. Physical Exam Vital Signs Vital Signs Date Time Temp Pulse Resp B/P Pulse Ox O2 Delivery O2 Flow Rate FiO2 09/09/16 17:56 44 21 94 Nasal Cannula 8 09/09/16 17:06 36.8 43 26 152/50 99 Nasal Cannula 8 Initial VS: Reviewed Head / Eyes: Atraumatic, Normocephalic, PERRL ENT: Mucous membranes moist, Conjunctiva normal, No scleral icterus Abdomen / GI: Soft, Non-tender, No guarding, No rebound, No distention Skin: Warm, Dry, No cyanosis Neurologic: Alert, Oriented General/Constitutional: Awake, Alert Neck: Atraumatic, Full range of motion, No JVD Respiratory / Chest: Breath sounds NL, Breath sounds = bilat, No respiratory distress, No rales, No rhonchi, No wheezing Cardiovascular: Heart sounds NL, Peripheral circulation NL Heart Rate / Rhythm: Positive: Bradycardia Trace lower extremity edema bilat Lower Extremity / Pelvis / MS: Full range of motion, Neurologic intact, Vascular intact Interpretation & Diagnostics Lab Results Interpretation Result Diagram: 09/09/16 1712 09/09/16 1712 Test 09/09/16 17:12 White Blood Count 8.0th/mm3 (3.8-10.1) Red Blood Count 4.56mil/mm3 (3.90-5.20) Hemoglobin 12.0g/dL (12.0-15.6) Hematocrit 39.4% (35.0-46.0) Mean Corpuscular Volume 86.4fL (81-100) Mean Corpuscular Hemoglobin 26.3pg (27.0-35.0) Mean Corpuscular Hemoglobin Concent 30.5% (32.0-37.0) Red Cell Distribution Width 15.9% (12.3-15.4) Platelet Count 346bil/L (150-400) Neutrophils (%) (Auto) 73.0% (40-74) Lymphocytes (%) (Auto) 15.3% (14-46) Monocytes (%) (Auto) 8.4% (4-12) Eosinophils (%) (Auto) 2.7% (0-5) Basophils (%) (Auto) 0.4% (0-3) Sodium Level 139mEq/L (134-144) Potassium Level 4.1mEq/L (3.5-5.2) Chloride Level 105mEq/L (97-108) Carbon Dioxide Level 19mmol/L (18-29) Blood Urea Nitrogen 16mg/dL (8-27) Creatinine 0.87mg/dL (0.57-1.00) Estimat Glomerular Filtration Rate 92mL/min (>59) Glucose Level 120mg/dL (60-99) Calcium Level 9.6mg/dL (8.5-10.1) Magnesium Level 1.9mg/dL (1.6-2.6) Total Bilirubin 0.3mg/dL (0.0-1.2) Aspartate Amino Transf (AST/SGOT) 13U/L (0-50) Alanine Aminotransferase (ALT/SGPT) 23U/L (0-32) Alkaline Phosphatase 68U/L (25-165) Troponin T < 0.010ug/L (0.0-0.011) Total Protein 6.9g/dL (6.4-8.4) Albumin 4.0g/dL (3.4-5.0) Hold Rodriguez Top Tube Received (Received) General Lab Results Interp 1: Labs reviewed ECG Interpretation ECG Interpretation: Rate 42. RBBB, 3rd degree AV block Time: 17:08 Interpreted by: ED physician X-Ray Chest Interpretation Chest Xray Interpretation: IMPRESSION: Congestive heart failure. Marked cardiomegaly. Dictated by: Armida Almaraz M.D. on 09/09/2016 at 17:31 View: Portable, 1 view Interpretation / Wet Read by: Interpret - Radiologist Re-Eval/Medical Decision Med Decision/Clinical Course Findings of third-degree AV block, no evidence of cardiac tamponade, although she has a significant sized pericardial effusion. We will plan to admit the patient to intensive care, cardiology evaluated the patient at the bedside, IV atropine was given with improvement in the patient's heart rate. Time of Eval: 18:04 Re-Evaluation/Progress Note: Updated pt and family. Consultation : Referral / Consult Name: Devendra Hernandez MD Consulted With: Cardiology Call Returned at: 17:17 Note: Reviewed ECG. Discussed treatment and plan of care. Counseled Regarding: Diagnosis, Lab results, Need for admission Discharge & Departure Primary Impression: Third degree AV block Disposition: ADMITTED TO HOSPITAL Discharge Condition All VS Reviewed: Yes Referrals: Susana Jay MD (PCP) Crit Care Except Billable Proc Time Spent: 30-74 minutes Services Performed: Patient management by me, Time spent at bedside, Reviewing test results, Reviewing imaging, Discussing patient care, Documentation in record, Time with fam/surrogate Critical Care Notes: See MDM Scribe Attestation Portions of this note were transcribed by Nancy Ware. I, (Dr. Titus Stubbs ) personally performed the history, physical exam and medical decision-making; I reviewed and confirmed the accuracy of the information in the transcribed note. Signed by: Nancy Ware. Kelechi, 09/09/2016, [id number] copies to: Susana Jay MD, Timothy S DO Sep 09, 2016 16:57 Nancy Ware Sep 09, 2016 17:08
[2016-09-09 17:06] VITALS: BP 152/50; PULSE 43; RESP 26; O2SAT 99
[2016-09-09] MEDS ORDERED: Atropine 1 mg/10 mL (Code) Syringe IVPUSH PRN (17:15)
[2016-09-09 17:28] LABS: BASOPHILS % (AUTO) 0.4 % (0-3); EOSINOPHILS % (AUTO) 2.7 % (0-5); MONOCYTES % (AUTO) 8.4 % (4-12); Mean Corpuscular Hemoglobin 26.3 pg (27.0-35.0); Mean Corpuscular Volume 86.4 fL (81-100); Platelet Count 346 bil/L (150-400)
--- NOTE | 2016-09-09 17:33 | DRSVH ---
PROCEDURE: X-RAY CHEST ONE VIEW, PORTABLE ([id number]) INDICATIONS: chest pain TECHNIQUE: One view of the chest was acquired. COMPARISON: [facility], CR, XR CHEST 1VW (PORTABLE), 06/21/2016, 20:06. FINDINGS: Surgical changes and devices: None. Lungs and pleura: Lateral interstitial and air space infiltrates are compatible with pulmonary edema . No pleural effusions or pneumothorax. Mediastinum: Mediastinal contours appear normal. Heart size is markedly increased. Bones and chest wall: No suspicious bony lesions. Overlying soft tissues appear unremarkable. IMPRESSION: Congestive heart failure. Marked cardiomegaly. Dictated by: Armida Almaraz M.D. on 09/09/2016 at 17:31 Approved by: Armida Almaraz M.D. on 09/09/2016 at 17:32
[2016-09-09 17:56] VITALS: PULSE 44; RESP 21; O2SAT 94
[2016-09-09 18:00] LABS: Magnesium 1.9 mg/dL (1.6-2.6)
[2016-09-09 18:04] LABS: TROPONIN T < 0.010 ug/L (0.0-0.011)
[2016-09-09 18:08] VITALS: BP 135/35; PULSE 43; RESP 29; O2SAT 92
[2016-09-09] MEDS ORDERED: HYDR-4003 PO (18:44)
[2016-09-09] MEDS ORDERED: TREP1TAB PO (18:44)
[2016-09-09] MEDS ORDERED: TORS10TA5 PO (18:44)
[2016-09-09] MEDS ORDERED: POTA10TA12 PO (18:44)
[2016-09-09] MEDS ORDERED: PROM5SYR PO (18:48)
[2016-09-09] MEDS ORDERED: CRAN1TAB5 PO (18:51)
[2016-09-09] MEDS ORDERED: MULT1CAP33 PO (18:51)
[2016-09-09] MEDS ORDERED: FOLI1TAB18 PO (18:51)
[2016-09-09] MEDS ORDERED: Ondansetron 2 mg/mL 2 mL Inj IVPUSH PRN ×2 (18:55→20:00)
[2016-09-09] MEDS ORDERED: Alum-Mag Hydrox-Simeth 30 mL Suspension PO PRN ×2 (18:55→20:00)
[2016-09-09 19:32] VITALS: BP 135/35; PULSE 43; RESP 29; O2SAT 92
[2016-09-09 19:40] VITALS: BP 147/55; PULSE 49; RESP 22; O2SAT 96
--- NOTE | 2016-09-09 20:23 | PCM.HPMED ---
Subjective Date of Service Sep 09, 2016 Primary Provider: Admitting Physician: Marques Rosario MD Primary Care Physician: Susana Jay MD Attending Physician: Marques Rosario MD Admit Status: From the Emergency Department Chief Complaint: Shortness of breath, dizziness History of Present Illness: 71 yo F with history of CREST syndrome with subsequent pulmonary fibrosis, pulmonary hypertension, pericardial effusions, HTN, hypothyroidism, and colon cancer diagnosed via CT in 10/2015 [facility] from the [facility] with concern for cardiac tamponade. Patient presented with the complaint of worsening shortness of breath and found to be tachypneic and bradycardic. She endorses dyspnea on exertion, productive cough and episodes of dizziness with recent syncopal episode and ground level fall. She states that she is on 8L home O2 at baseline but has noted increased shortness of breath for the past several days. Associated symptoms include a productive cough, worsening of dyspnea with exertion, ear fullness/pressure, fatigue and generalized weakness. She denies chest pain or palpitations, fever, chills, GI or symptoms. Of note , patient was diagnosed with Colon Cancer this past summer and has not pursued treatment. She endorses intermittent diarrhea, dark stool, and often uses loperamide for symptomatic control. In the ED, vitals: 36.8, BP 152/50, HR 43, RR 21-26, SpO2 94-99% on 8L nasal cannula. Labs: wbc 8.0, Hgb/Hct 12.0/39.4, sodium 139, potassium 4.1, chloride 105, bicarb 19, bun 16, creatinine 0.87, serum glucose 120. calcium 9.6, magnesium 1.9, total bilirubin 0.3, AST/ALT 13/23, alk phos 68, troponin negative x2, total protein 6.9, albumin 4.0. CXR revealed marked cardiomegaly and findings consistent with CHF. EKG Rate 42. RBBB, 3rd degree AV block and Cardiology consulted from the ED and patient admitted to CCU on telemetry with possible pacemaker placement in the morning. Review of Systems: A comprehensive review of systems was conducted with the patient and found to be negative except as above in the History of Present Illness. Allergies Coded Allergies: Sulfa (Sulfonamide Antibiotics) (Verified Allergy, Intermediate, Nausea, Vomiting, 09/09/16) clarithromycin (Unverified Allergy, Unknown, Hives, 09/10/16) levofloxacin (Unverified Allergy, Unknown, Hives, 09/10/16) morphine (Verified Allergy, Unknown, HIVES, 09/09/16) amoxicillin (Verified Adverse Reaction, Mild, Nausea,Vomiting, 09/10/16) "Makes me feel weird", Ok to use Augmentin Home Medications Ambrisentan (Letairis) 10 MG PO DAILY Aspirin 81 MG PO DAILY Atorvastatin 10 MG PO DAILY Calcium Carbonate 600 MG PO BID Esomeprazole Magnesium (Nexium) 40 MG PO DAILY Fluticasone Propionate (50 Mcg/Actuation Warren.susp 1 SPRAY NASAL DAILY Levothyroxine 75 MCG PO DAILY Mycophenolate Mofetil (500 MG PO BID Nifedipine ER (60 MG PO DAILY Potassium Chloride ER 10 MEQ PO 5XD Prednisone 5 MG PO DAILY Spironolactone 25 MG PO DAILY Tadalafil (Adcirca) 40 MG PO DAILY Torsemide 20 MG PO DAILY Trazodone 100 MG PO HS Treprostinil Diolamine 2 MG PO TID PMH CREST syndrome Pulmonary Fibrosis Pulmonary Hypertension Pericardial Effusions Essential HTN Hypothyroidism GERD Colon Cancer diagnosed via CT in 10/2015 Surgical History Tonsillectomy Cholecystectomy Partial Hysterectomy Left Knee x3 Esophageal tightening due to GERD Family History Lung Cancer Lymphoma Colon Cancer Social History Hx Alcohol Use: No Hx Substance Use: No Smoking Status: Unknown if Ever Smoker Exam Vital Signs Vital Sign - Last Date Time Temp Pulse Resp B/P Pulse Ox O2 Delivery O2 Flow Rate FiO2 09/09/16 19:32 36.8 43 29 135/35 92 Nasal Cannula 8 Exam General - Age appropriate female laying comfortably in bed, in no acute distress. HEENT - NCAT, PERRLA, normal conjunctivae, moist mucosa. No scleral icterus or pallor. Neck - Supple, nontender, No JVD, lymphadenopathy noted. Cardiac - RRR, bradycardic, normal S2,S2 Lungs - CTA bilaterally, decreased air movement but no wheezes/rales/rhonchi. Abd - Soft, NT/ND, +BS. No organomegaly, guarding, or masses. Extremities - Pulses intact/equal bilaterally. Blue skin discoloration fingertips b/l consistent w/Raynaud's. No clubbing or edema. Neuro -CN grossly intact. No focal motor/sensory deficits. Psych - Normal mood and affect, appropriate in response. Lab and Diagnostics Labs Laboratory Tests Test 09/09/16 17:12 White Blood Count 8.0th/mm3 (3.8-10.1) Red Blood Count 4.56mil/mm3 (3.90-5.20) Hemoglobin 12.0g/dL (12.0-15.6) Hematocrit 39.4% (35.0-46.0) Mean Corpuscular Volume 86.4fL (81-100) Mean Corpuscular Hemoglobin 26.3pg (27.0-35.0) Mean Corpuscular Hemoglobin Concent 30.5% (32.0-37.0) Red Cell Distribution Width 15.9% (12.3-15.4) Platelet Count 346bil/L (150-400) Neutrophils (%) (Auto) 73.0% (40-74) Lymphocytes (%) (Auto) 15.3% (14-46) Monocytes (%) (Auto) 8.4% (4-12) Eosinophils (%) (Auto) 2.7% (0-5) Basophils (%) (Auto) 0.4% (0-3) Sodium Level 139mEq/L (134-144) Potassium Level 4.1mEq/L (3.5-5.2) Chloride Level 105mEq/L (97-108) Carbon Dioxide Level 19mmol/L (18-29) Blood Urea Nitrogen 16mg/dL (8-27) Creatinine 0.87mg/dL (0.57-1.00) Estimat Glomerular Filtration Rate 92mL/min (>59) Glucose Level 120mg/dL (60-99) Calcium Level 9.6mg/dL (8.5-10.1) Magnesium Level 1.9mg/dL (1.6-2.6) Total Bilirubin 0.3mg/dL (0.0-1.2) Aspartate Amino Transf (AST/SGOT) 13U/L (0-50) Alanine Aminotransferase (ALT/SGPT) 23U/L (0-32) Alkaline Phosphatase 68U/L (25-165) Troponin T < 0.010ug/L (0.0-0.011) Total Protein 6.9g/dL (6.4-8.4) Albumin 4.0g/dL (3.4-5.0) Hold Rodriguez Top Tube Received (Received) Result Diagram: 09/09/16171109/09/161711 X-Rays, CTs and MRIs X-RAY CHEST ONE VIEW, PORTABLE (Dictated by: Armida Almaraz M.D. on 09/09/2016 at 17:31) FINDINGS: -Surgical changes and devices: None. -Lungs and pleura: Lateral interstitial and air space infiltrates are compatible with pulmonary edema. No pleural effusions or pneumothorax. -Mediastinum: Mediastinal contours appear normal. Heart size is markedly increased. -Bones and chest wall: No suspicious bony lesions. Overlying soft tissues appear unremarkable. IMPRESSION: Congestive heart failure. Marked cardiomegaly. Approved by: Armida Almaraz M.D. on 09/09/2016 at 17:32 Assessment & Plan 71 yo F with h/o CREST syndrome, pulmonary fibrosis with pulmonary HTN, recently diagnosed Colon Cancer, and hypothyroidism transferred to [facility] from [facility] with concern for cardiac tamponade. She presented c/o worsening shortness of breath and found to have 3rd degree AV block and a large pericardial effusion but no evidence of cardiac tamponade. Admitted to the CCU and cardiology consulted for potential pacemaker placement. 1. 3rd degree AV block, present on admission. Active -Received IV atropine in the ED with improvement in heart rate. -Cardiology consulted from the ED, recommend monitoring overnight with possible pacemaker placement tomorrow. -Hemodynamically stable: BP 130s-150/35-50 with MAP 68-84. HR mid 40s. -Admitted to CCU w/telemetry, transcutaneous pacing if necessary. -Held home Nifedipine, 2. Pericardial effusion, present on admission. Active -Cardiolgoy consulted as above and Echo completed. -Discussed pt with Cardiology, no evidence of cardiac tamponade, lrg pleural effusion. Urgent/emergent pericardiocentesis not indicated. -Pt remains hemodynamically stable -Repeat CBC, CMP in the morning -Thyroid function panel pending 3. 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 Presumed stable. 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 -Pt on 8L chronic home O2, currently w/SpO2 92-94% on 8L nasal cannula. -Home medications not on hospital formulary: Orenitram, Adcirca, and Letairis ( pt has brought in from home in the past) -On chronic prednisone 5mg po daily -Continued pt's home meds: Treprostinil, Tadalafil -Held Ambrisentan, spironolactone, torsemide. Day team to reevaluate. 4. Colon Cancer diagnosed via CT in 10/2015, POA -Patient does not wish to pursue further treatment, endorses dark stool and intermittent diarrhea. -Has taken daily Loperamide in the past for symptomatic control -Consider Palliative/Hospice consult -Loperamide prn diarrhea, if necessary 5. Chronic hypothyroidism, present on admission. Presumed stable. -Continue home levothyroxine, reevaluate pending lab results -TSH/free T4 pending 6. Chronic GERD, present on admission. Stable -Patient reports multiple surgeries to tighten lower esophageal sphincter by Dr. Cr Yadav -H2 vito for prophylaxis 7. Chronic hypertension, present on admission. Stable. -Currently not on any medications for HTN per patient. 8. Chronic hyperlipidemia, present on admission. Presumed stable. -Continue home statin 9. Chronic vertigo, present on admission. Stable -Evaluated by ENT as an outpatient. -Continue Meclizine and anti-emetic medications prn. CODE STATUS: Reviewed with patient and family who confirm she wishes to be FULL CODE. Previously DNR/DNI. FEN: NPO after midnight for possible procedure IVF: NS @75 mls/hr GI Prophylaxis: esomeprazole 40mg daily at home, DVT Prophylaxis: Sub-q lovenox, 40mg daily PRN: Acetaminophen-fever/headache/mild/moderate pain Antiemetics, as needed Bowel regimen, as needed. Disposition: Patient admitted under inpatient status with expected length of stay > 2 midnights for severity of present symptoms, complexities of treatment plan and risk for adverse event. Pain Evaluation: Adequate Pain Control GI Prophylaxis: Proton Pump Inhibitor VTE Prophylaxis Indicated: Meets Criteria for Anticoag Therapy VTE Prophylaxis: Sub-Q Enoxaparin Resuscitation Status: CPR: Attempt Resuscitation Attending Statement The patient was seen and examined together with on 09/09/2016 and I have added additional information to the note above. 3rd degree heart block pericardial effusion dicussed with cardiology Dr. Johnson. no emergent intervention now. external pacemaker pads. cardiology will re-eval in am for need for pericardiocentesis, pacemaker. Tova Hutchison Sep 09, 2016 20:23 Kendrick Lozoya MD Sep 10, 2016 05:49 Trazodone 100 MG PO HS Treprostinil Diolamine 2 MG PO TID Pain Evaluation: Adequate Pain Control GI Prophylaxis: Proton Pump Inhibitor VTE Prophylaxis Indicated: Meets Criteria for Anticoag Therapy VTE Prophylaxis: Sub-Q Enoxaparin Resuscitation Status: CPR: Attempt Resuscitation Tova Hutchison Sep 09, 2016 20:23 Total Protein 6.9g/dL (6.4-8.4) Albumin 4.0g/dL (3.4-5.0) Hold Rodriguez Top Tube Received (Received) Result Diagram: 09/09/162 09/09/16 1712 X-Rays, CTs and MRIs X-RAY CHEST ONE VIEW, PORTABLE (Dictated by: Armida Almaraz M.D. on 09/09/2016 at 17:31) FINDINGS: -Surgical changes and devices: None. -Lungs and pleura: Lateral interstitial and air space infiltrates are compatible with pulmonary edema. No pleural effusions or pneumothorax. -Mediastinum: Mediastinal contours appear normal. Heart size is markedly increased. -Bones and chest wall: No suspicious bony lesions. Overlying soft tissues appear unremarkable. IMPRESSION: Congestive heart failure. Marked cardiomegaly. Approved by: Armida Almaraz M.D. on 09/09/2016 at 17:32 Assessment & Plan 71 yo F with h/o CREST syndrome, Pulmonary fibrosis with Pulmonary HTN, recently diagnosed Colon Cancer, and Hypothyroidism who presents for acute onset of Vertigo today. With her reassuring head CT and HiNTS exam, this is unlikely a central source, but will likely need an MRI to r/o. From her history of low pitch hearing loss and intermittent dizziness, Meniere's disease is suspicious. She did report a recent right ear infection that required antibiotics, but ear exam was unremarkable. She also has an abnormal UA and has been treated with antibiotics for a UTI infection in the past 2 weeks. This could also be a cause of her vertigo. #Vertigo, acute -Currently dizzy, but n/v has improved. Will continue Meclizine and anti- emetics medications prn. -HiNTS exam reassuring and initial brain CT unremarkable. DDx, posterior infarct , mets disease, labyrinthitis, Meniere's, infection -Although less likely, will require MRI to rule out posterior infarcts or metastatic disease from her Colon Cancer. Will defer to Day team to order. -Will also await UA culture before starting any Antibiotics since patient does not complain of urinary symptoms currently. This could also be a source of her dizziness. -With her complaint of hearing loss in the past year and transient intermittent dizziness, she likely has Meniere's disease and should be evaluated by ENT as an outpatient. Low dose diuretic and low sodium diet would be helpful for prophylaxis on discharge. #CREST syndrome with resulting pulmonary fibrosis and pulmonary hypertension, POA -Patient is on 8L O2 at home at baseline, she is currently stable. 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 -Continue home meds. #Colon Cancer diagnosed via CT in 10/2015, POA -Per patient, she wishes not to pursue any further treatment for this condition. -She does continue to have diarrhea daily and uses Loperamide frequently for symptomatic control -Consider Palliative/Hospice consult -Loperamide prn diarrhea and IV NS 100mls/hr for fluids #Hypothyroidism, POA -Patient reports her LT4 was recently titrated upwards last year -TSH/FT4 pending -Continue LT4 #GERD, POA -Patient reports multiple surgeries to tighten lower esophageal sphincter by Dr. Cr Yadav -H2 vito for prophylaxis #Hypertension, chronic, POA -Stable, currently not on any medications for HTN per patient. Pain Evaluation: Adequate Pain Control GI Prophylaxis: Proton Pump Inhibitor VTE Prophylaxis Indicated: Meets Criteria for Anticoag Therapy VTE Prophylaxis: Sub-Q Enoxaparin Resuscitation Status: CPR: Attempt Resuscitation Tova Hutchison DO Sep 09, 2016 20:23
[2016-09-09 20:30] VITALS: BP 149/49; PULSE 46; RESP 22; O2SAT 99
--- NOTE | 2016-09-09 22:00 | NUR ---
CCU Admission Pt arrived from ER to CCU # 2015 approx at 1930. Pt is alert and conversing. Admission assessment and screening completed. Med-Rec update by Admit RN and verified with pt by pharmacist. orders noted and initiated promptly. night monitor shows 3rd degree HB. HR 40s. Pt asymptomatic. POC discussed and reviewed with pt and family. They verbalizes understanding. No overt complication noted.
[2016-09-09 23:05] LABS: APPEARANCE,URINE CLEAR (CLEAR,HAZY); COLOR,URINE YELLOW (YELLOW); OCCULT BLOOD,URINE NEGATIVE (NEGATIVE); PH,URINE 5.5 (5.0-8.0); UROBILINOGEN,URINE NORMAL (NORMAL)
[2016-09-09] MEDS ORDERED: HYDROcodone-APAP 5-325 mg Tablet PO PRN (23:30)
[2016-09-10] VITALS (8 sets, daily range): BP systolic 133–170; BP diastolic 47–85; PULSE 49–62; RESP 18–36; O2SAT 85–95
[2016-09-10] MEDS ORDERED: 0.9% Sodium Chloride 1,000 ML IV SCH (00:20)
[2016-09-10] MEDS: TADALAFIL 20 MG TABLET PO SCH ×2 (01:10→20:08)
[2016-09-10 03:20] LABS: BASOPHILS % (AUTO) 0.5 % (0-3); EOSINOPHILS % (AUTO) 3.5 % (0-5); MONOCYTES % (AUTO) 10.3 % (4-12); Mean Corpuscular Hemoglobin 26.6 pg (27.0-35.0); Mean Corpuscular Volume 85.4 fL (81-100); NEUTROPHILS % (AUTO) 71.3 % (40-74); Platelet Count 349 bil/L (150-400)
[2016-09-10 03:54] LABS: Magnesium 1.9 mg/dL (1.6-2.6)
[2016-09-10] MEDS ORDERED: LORazepam 0.5 mg Tablet PO ONE (04:55)
--- NOTE | 2016-09-10 06:51 | NUR ---
Cardiac / anxiety HR mostly 40s. Occasionally down to 30s. 3rd degree HB. BP stable. Pt asymptomatic. She C/O SOB due to pulmonary fibrosis issues. Pt stated is the usual SOB. On 8 L NC. Increased to 9L per pts request. She sated at home she uses 9 L. She refused face mask due to claustrophobia. Pt C/O anxiety due to hospitalization and not able to sleep. MD notified. Received order for Ativan x1. Pt stated It helped. Thank you she is less anxious. Douglass cath inserted per orders. Pt is NPO status anticipating cardiac intervention. No overt complication noted. Daughter at the bedside providing support and comfort. Refer to CCU flowsheet and monitor strips for further details.
[2016-09-10] MEDS ORDERED: LORazepam 1 mg Tablet PO ONE (07:50)
[2016-09-10] MEDS: TREPROSTINIL PO SCH ×3 (09:50→19:51)
[2016-09-10] MEDS ORDERED: LORazepam 0.5 mg Tablet PO PRN (10:00)
--- NOTE | 2016-09-10 10:35 | NUR ---
NUTRITION ASSESSMENT: ASSESS: Pt is a 71yo F admitted to CCU for 3rd degree heart block. Pt has history of colon ca diagnosis in October 2015 that she did not pursue treatment for. Per rounds, current plan is to get CT of chest, abdomen and pelvis to evaluate colon ca progression. Palliative to be involved for goals of care. Currently NPOx1 day for procedures. PMHX: colon ca, CREST syndrome, pulmonary fibrosis, HTN, pericardial effusion LABS: Reviewed. Glu 129, Alb 3.8 MEDS: Reviewed. zofran GI: 0 BM yet SKIN: Marek 20 CURRENT WTS:76.6kg, BMI 29kg/m2 DIET: NPO EST. NEEDS: Kcals: 1915-2300kcal/day (25-30kcal/kg) Pro: 75-95g/day (1.0-1.2g/kg) NUTRITION DIAGNOSIS: 1.) Inadequate oral intake related to decreased ability to consume sufficient energy as evidenced by current NPO status NUTRITION INTERVENTION: 1.) Recommend advance diet when medically appropriate MONITOR / EVAL: NPO, gi, wt, labs, POC, nutrition status. Will continue to monitor per moderate nutrition risk guidelines
--- NOTE | 2016-09-10 11:46 | PCM.CHPCAR ---
Consult Subjective Date of service Sep 10, 2016 Date of admit Sep 09, 2016 at 18:06 Provider Requesting Consult Primary Care Physician Primary Care Physician: Susana Jay MD Chief Complaint pericardial effusion History of Present Illness 71-year-old woman history of crest syndrome with pulmonary fibrosis since 2005, colon cancer, and suspected pericardial effusion admitted with failure to thrive. Patient has delirium and is unable to provide a clear story. Patient' s daughter, Anastasiia, states that she is the DP OA and takes care of her mother. Patient was diagnosed with crest syndrome about 11 years ago. She has slowly declined over time. About a year ago, she was diagnosed with colon cancer based on a CT scan done in [place]. She was also noted to have a pericardial effusion at that time. Per daughter, pericardiocentesis was not done as the pericardial effusion was felt to be posterior. Over the past 6 months, patient has had significant decline in her overall function and is unable to take care of her ADLs. About 3 weeks ago, she fell and has been eating constant care by her daughter. She is now living with her daughter. Patient's primary complaints are dyspnea and fatigue. The rest of the story is unable to obtain due to patient condition. 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 Scheduled Ambrisentan (Letairis) 10 Mg Tablet 10 MG PO HS (Reported) Aspirin (Aspirin) 81 Mg Tablet 81 MG PO HS (Reported) Atorvastatin (Lipitor) 10 Mg Tab 10 MG PO HS (Reported) Calcium Carbonate (Calcium) 600 Mg Tablet 600 MG PO DAILYWM (Reported) Cranberry Conc/C/Bacill Coag (Cranberry Tablet) 1 Each Tablet 12 EACH PO QAM ( Reported) Esomeprazole Magnesium (Nexium) 40 Mg Capsule.dr 40 MG PO BIDWM (Reported) Folic Acid (Folic Acid) 1 Mg Tablet 1 MG PO QAM (Reported) Levothyroxine (Levothyroxine) 75 Mcg Tablet 75 MCG PO QAM (Reported) Multivitamin (Multivitamins) 1 Each Capsule 1 EACH PO DAILYWM (Reported) Mycophenolate Mofetil (Mycophenolate Mofetil) 500 Mg Tablet 500 MG PO BID ( Reported) Nifedipine ER (Nifedipine ER) 60 Mg Tab.er.24 60 MG PO HS (Reported) Potassium Chloride ER (Potassium Chloride ER) 10 Meq Tablet 30 MEQ PO DAILYWM ( Reported) Potassium 30 meq in AM and 20 meq in PM Potassium Chloride ER (Potassium Chloride ER) 10 Meq Tablet 20 MEQ PO DAILYWD ( Reported) Potassium 30 meq in AM and 20 meq in PM Prednisone (PredniSONE) 5 Mg Tab 5 MG PO QAM (Reported) Spironolactone (Spironolactone) 25 Mg Tablet 25 MG PO QAM (Reported) Tadalafil (Adcirca) 20 Mg Tablet 40 MG PO HS (Reported) Torsemide (Torsemide) 10 Mg Tablet 5 MG PO QAM (Reported) Trazodone (Trazodone) 100 Mg Tablet 100 MG PO HS (Reported) Treprostinil Diolamine (Orenitram ER) 1 Mg Tablet.er 2 MG PO TID (Reported) Scheduled PRN Hydrocodone-Acetaminophen 5-325 mg (Hydrocodone-Acetaminophen 5-325 mg) 1 Each Tablet 2 EACH PO DAILY PRN PRN For Pain (Reported) Promethazine HCl/Codeine (Prometh-Codein 6.25-10 mg/5 ml) 6.25 Mg-10 Mg/5 Ml (5 Ml) Syrup 10 ML PO DAILY PRN PRN For Nausea (Reported) Discontinued Medications Cefuroxime Axetil (Ceftin) 500 Mg Tablet 500 MG PO BID Fluticasone Propionate (Flonase Allergy Relief) 50 Mcg/Actuation [place].susp 1 SPRAY NASAL DAILY Meclizine (Bonine) 25 Mg Tab.chew 25 MG PO TID Meclizine (Bonine) 25 Mg Tab.chew 25 MG PO TID PRN PRN For Dizziness Torsemide (Torsemide) 20 Mg Tablet 20 MG PO DAILY (Reported) Treprostinil Diolamine (Orenitram ER) 1 Mg Tablet.er 2 MG PO TID (Reported) Current Inpatient Medications Current Medications Atropine Sulfate 0.5 mg ONCE PRN IVPUSH Last administered on 09/09/16t 17:21; Admin Dose 0.5 MG; Start 09/09/16 at 17:15; Stop 09/09/16 at 17:19; Status DC Al Hydrox/Mg Hydrox/Simethicone 30 ml Q6 PRN PO; Start 09/09/16 at 18:55; Status Cancel Ondansetron HCl Dose range: 4 mg to 8 mg Q4H PRN IVPUSH; Start 09/09/16 at 18:55 ; Status Cancel Acetaminophen 975 mg Q6H PRN PO; Start 09/09/16 at 18:55; Status Cancel Ondansetron HCl 4 to 8 mg Q4H PRN IVPUSH Last administered on 09/10/16 08:20; Admin Dose 4 MG; Start 09/09/16 at 20:00 Acetaminophen 650 mg Q4H PRN PO; Start 09/09/16 at 20:00 Al Hydrox/Mg Hydrox/Simethicone 30 ml Q6H PRN PO; Start 09/09/16 at 20:00 Enoxaparin Sodium 40 mg 2030 SUBQ Last administered on 09/09/16 21:24; Admin Dose 40 MG; Start 09/09/16 at 20:30 Acetaminophen/ Hydrocodone Bitart 1 tablet HS PRN PO Last administered on 23:34; Admin Dose 1 TABLET; Start 09/09/16 at 23:30 Patient Own Medication TADALAFIL 20 MG, 40 MG... HS PO Last administered on 01:10; Admin Dose 2 EA; Start 09/10/16 at 00:24 Patient Own Medication TREPROSTINIL 2 MG, 2 MG PO TID TID PO; Start 09/10/16 at 08:30 Sodium Chloride 1,000 ml @ 75 mls/hr [id number] IV Last administered on 09/10/16 00:30; Admin Dose 75 MLS/HR; Start 09/10/16 at 00:20 Lorazepam 0.5 mg Q2 PRN PO; Start 09/10/16 at 10:00 Hydromorphone HCl 0.5 mg Q1H PRN PO; Start 09/10/16 at 10:00 Allergies: Coded Allergies: Sulfa (Sulfonamide Antibiotics) (Verified Allergy, Intermediate, Nausea, Vomiting, 09/09/16) clarithromycin (Unverified Allergy, Unknown, Hives, 09/10/16) levofloxacin (Unverified Allergy, Unknown, Hives, 09/10/16) morphine (Verified Allergy, Unknown, HIVES, 09/09/16) amoxicillin (Verified Adverse Reaction, Mild, Nausea,Vomiting, 09/10/16) "Makes me feel weird", Ok to use Augmentin Family History Family History Daughter is healthy. Social History Hx Alcohol Use: NoHx Substance Use: No Smoking Status: Unknown if Ever Smoker Exam Vital Signs Vital Sign - Last Date Time Temp Pulse Resp B/P Pulse Ox O2 Delivery O2 Flow Rate FiO2 09/10/16 08:00 Supplement Oxygen 09/10/16 08:00 36.4 56 23 170/50 91 9.00 Intake and Output 09/09/16 09/09/16 09/10/16 Cumulative From/Thru 15:00 23:00 07:00 09/09/16 17:06 - 09/10/16 06:48 Intake Total 952 ml 952 ml Output Total 400 ml 400 ml Balance 552 ml 552 ml Intake Oral 600 ml 600 ml IV Total 352 ml 352 ml Output Urine Total 400 ml 400 ml Objective General appearance: in mild distress, frail, pleasant, cooperative HEET: Normocephalic atraumatic, no scleral icterus, tongue midline, mucous membranes moist Neck: supple Cardiovascular: armani, regular, distant S1 and S2, no JVD, 1+ peripheral edema Respiratory: Fair aeration, coarse Abdomen: Soft, nontender, obese, + bowel sounds Neuro: Alert, no facial droop, tongue midline, no gross motor deficits Psych: anxious Skin: no rashes on face, neck, and lower extremities Lab and Diagnostics Result Diagram: 09/10/16 0310 09/10/16 0310 X-Rays, CTs and MRIs Echo 09/09/2016: 1) Large circumferential pericardial effusion present. 2) Significant respiratory variation of the mitral inflow, late diastolic to early systolic right atrial collapse, and early diastolic right ventricular inadequate filling suggests tamponade. 3) Grossly hyperdynamic left ventricular function. 4) Grossly normal right ventricular size with mildly to moderately reduced function. 5) No prior Echo available for comparison. 12-lead ECG ECG on admission shows complete heart block with junctional rhythm the 40s. Assessment & Plan Assessment 71-year-old woman history of crest syndrome with pulmonary fibrosis since 2006, colon cancer, and suspected pericardial effusion admitted with failure to thrive and concern for tamponade physiology. # Pericardial effusion: Patient's pericardial effusion is large on the echocardiogram. There are early cortical cardiographic signs of Physiology. She is not hypotensive, making clinical temponade less likely at present but will likely occur with time if no pericardiocentesis is done. Etiology of pericardial effusion is suspected to be malignant then given history of untreated colon cancer. I spent significant time educating the vision and her daughter about patient's critical condition. While therapeutic pericardiocentesis will probably make her feel better short-term, he did not term prognosis remains poor. It is unlikely she will be able to live independently. After prolonged discussion with me and palliative care, patient and family are leaning towards not doing invasive procedures and focusing on comfort. We will respect patient's wishes and are available for further help as needed. # Complete heart block: Patient has complete heart block based on the ECG with junctional rhythm. Given her blood pressure is okay, there is no emergent need to bring the pacemaker. Furthermore, patient's prognosis is poor and she is unlikely to live for more than 6 months. Therefore, permanent pacemaker placement is not indicated at this time. # Colon cancer: defer to primary team. Recommend getting records from [place]. # CREST syndrome with pulmonary fibrosis and severe pulmonary hypertension: Patient's crest syndrome with pulmonary fibrosis and pulmonary hypertension are severe and end-stage. Recommend symptomatic management at this time. Pain Evaluation: Adequate Pain Control VTE Prophylaxis Indicated: Meets Criteria for Anticoag Therapy VTE Prophylaxis: Sub-Q Enoxaparin Resuscitation Status: CPR: Attempt Resuscitation Time spent I spent 70 minutes of critical care time evaluating the patient, reviewing her data, speaking with the patient and family, and coordinating care with palliative care team. Kody Borden MD Sep 10, 2016 11:45
--- NOTE | 2016-09-10 11:46 | DRSVH ---
[facility] [address] [place] [address] Echocardiogram Report Name: SPRING KOEHLER LStudy Date: 10/2016 Height: 64 in Hospital Exam Location: [facility] Weight: 166 lb Gender: Female BSA: 1.8 m2 : 1945 Age: 71 yrs BP: 152/50 mmHg Reason For Study: Pericardial Effusion Performed By: Cory Claros Referring Physician: JAMILA HARKINS Interpretation Summary 1) Large circumferential pericardial effusion present. 2) Significant respiratory variation of the mitral inflow, late diastolic to early systolic right atrial collapse, and early diastolic right ventricular inadequate filling suggests tamponade. 3) Grossly hyperdynamic left ventricular function. 4) Grossly normal right ventricular size with mildly to moderately reduced function. 5) No prior Echo available for comparison. Procedure: A two-dimensional transthoracic echocardiogram with color flow and Doppler was performed. The echocardiogram started as a ltd study for pericardial effusion and evolved into a complete study. Comparison is made with the echocardiogram of 06/16/15. The patient was in sinus bradycardia with heart rates between 39-46 bpm during the exam. Left Ventricle: The left ventricular cavity is small. There is mild concentric left ventricular hypertrophy. The echo findings are consistent with moderate dynamic left ventricular intracavitary obstruction. The ejection fraction is estimated to be >80%. The left ventricle is hyperdynamic. There are no obvious focal wall motion abnormalities noted but poor endocardial definition reduces the sensitivity for the detection of such. Spectral Doppler of the mitral valve is reversed, with an E/A wave ratio < 1.0. Right Ventricle: The right ventricle is normal size. Right ventricular systolic function is mild to moderately reduced. Atria: The left atrium is moderately dilated. Right atrial size is normal. The interatrial septum is intact with no evidence for an atrial septal defect. Mitral Valve: The mitral valve leaflets are mildly calcified. There is mild to moderate mitral annular calcification. There is mild mitral regurgitation. Aortic Valve: The aortic valve is grossly normal. No aortic regurgitation is present. Tricuspid Valve: The tricuspid valve is not well visualized, but is grossly normal. There is mild tricuspid regurgitation. There is pre-systolic TR. The right ventricular systolic pressure is estimated at 38 mmHg assuming a right atrial pressure of 8 mm Hg. Pulmonic Valve: The pulmonic valve leaflets are thin and pliable; valve motion is normal. There is moderate pulmonic regurgitation. Great Vessels: The aortic root is normal size. The dimensions of the ascending aorta are normal. Moderate pulmonary artery dilation. The IVC is dilated (diameter is greater than 2.1 cm) yet it collapses greater than 50% with a sniff. This suggests a right atrial pressure of 8 mm Hg. Pericardium/ Pleura There is a large pericardial effusion noted. Significant respiratory variation of the mitral inflow, late diastolic to early systolic right atrial collapse, and early diastolic right ventricular inadequate filling suggests tamponade. There is no pleural effusion. MMode/2D Measurements & Calculations LVIDd: 3.7 cm RA long axis LVOT diam LVIDs: 2.0 cm LA A2 area: 23.7 cm FS: 45.3 % LA A4 area: 24.2 cm RA area Ao root diam IVSd: 0.99 cm LA length (vol): 6.2 cm LVPWd: 1.0 cm LA vol: 78.4 ml : 16.6 cm asc Aorta LA vol index RA vol: 42.7 mlDiam: 2.8 cm RA : 23.6 mm2 IVC diam: 2.3 cm LV parada. diameter/BSA LV sys. diameter/BSA (cm/m^2): 2.0 (cm/m^2): 1.1 Doppler Measurements & Calculations Ao V2 max MV E max juan david MV E/A: 0.66 TR max juan david : 273.7 cm/sec : 145.3 cm/sec : 275.9 cm/sec Ao max PG MV A max juan david TR max P.4 mmHg : 30.0 mmHg : 219.2 cm/sec Ao mean PG : 16.0 mmHg LVOT Max Juan David : 168.3 cm/sec ROSA(I,D): 2.5 cm sev ratio MV dec time Ao V2 mean LV V1 max PG ROSA indexed to BSA : 0.53 sec : 187.4 cm/sec (cm^2/m^2): 1.4 Ao V2 VTI: 51.9 cm LV V1 VTI ROSA(V,D): 1.9 cm2 : 40.6 cm Reading Physician:09:31 AM
--- NOTE | 2016-09-10 12:17 | NUR ---
Palliative care note D/A: Palliative care referral kindly received from Dr. Rosario who requests assist with goals of care. Pt is 71 yof who appears to live at home. She is admitted from [facility] and comes with concerns regarding cardiac tamponade. Pt known to have history of pulmonary fibrosis and CREST syndrome. Pt noted to have become increasingly frail over past 6 months and is currently felt to have a complete heart block. Cardiology notes that her heart could fail at any time essentially. Pt is known to have received a diagnosis of colon cancer about one year ago but she was not able to pursue any treatments given the frailty of her condition. Noted that at admit, pt changed her code status from DNR/DNI to that of full code. Pt dtr and POA is Margie Douglas at [phone] Additional dtr is Aicha Melendez at [phone] or [phone]. P: Palliative care to follow as needed. Chantel BARNES, CCM
--- NOTE | 2016-09-10 13:38 | NUR ---
Trepostrinil held per Dr Borden.
--- NOTE | 2016-09-10 13:39 | NUR ---
Mentation/Respiratory/Cardiac Patient a/o x3, but after Ativan more confused, making confused statements according to family. Very restless and Ativan helpful. Unable to obtain sat from fingers so forehead probe was applied. Able to get good readings from forehead probe except patient is so fidgety that it interfered with readings and or it was pulled off very frequently. Oxymask was applied due to sat unable to maintain on NC. Now, patient refuses oxymask and Palliative MD OKd nasal canula to be replaced. NC at 8L currently. Patient now refusing to wear sat monitor. Sat turned off and will spot check sats. Lungs are decreased t/o with crackles in the bases. Tele shows a 3rd degree heart block, rate 51 now with PVCs. MDs aware of all above.
--- NOTE | 2016-09-10 14:07 | NUR ---
Social Work: Initial Assessment D: Per EMR review, pt is a 71 year old female admitted for 3rd degree AV block. Pt is [employer] Medicare with no LTC insurance or VA benefits. PCP is Susana Jay MD. NOK Is Margie Glass, dtr, . Advanced directives not completed. Readmit score not entered at this time. Pt discussed with palliative care MD. Pt and family are pursuing comfort measures and would like assistance with discharge planning. They have requested a private pay rate at [facility]. ASSISTANT WOMEN'S BASKETBALL COACH called [facility] and spoke with admissions Frederick who states a Respite rate is $135/night and a monthly studio room is $3750 with $75 medication management fee. ASSISTANT WOMEN'S BASKETBALL COACH met with pt's family and POA at bedside. Sw role and contact information provided. See initial assessment. Pt lives with her daughter/POA in [place]. Family expresses concerns with previous experiences with hospice in the past and are concerned that they will not be supported after taking the pt home. ASSISTANT WOMEN'S BASKETBALL COACH reviewed discharge options; pt is [employer] and does not have a SNF benefit for end of life care. Pt's family was provided with PP cost at [facility], per their request. They state that while they are nervous to take the pt home, they believe this is their only option due to he cost of an NOA. They would like a hospice informational visit to discuss services and their concerns. Family states that they would like for the pt to transport via ambulance as they do not feel she can safely maintain an upright seated position. ASSISTANT WOMEN[employer] BASKETBALL COACH reviewed BLS/ALS services and possibility of get a bill due to lack of pre-auth ability. They state they understand and would rather the pt get home safely and comfortably. t/c to [facility] to provide referral and request an intake; left message requesting return phone call. A: pt who is currently comfort care. P: Anticipate pt to discharge home via BLS with Hospice; ASSISTANT WOMEN'S BASKETBALL COACH to continue to follow up with hospice to confirm delivery of equipment and discuss intake time/date. ELA Cox Addendum: 09/10/16 at 1418 by DIANA DEJESUS SS Amended: Links added. Addendum: 09/10/16 at 1505 by DIANA DEJESUS SS t/óscar from [facility] at [facility]; they will not be able to complete an info visit [facility]. She is calling her damage prevention coordinator to determine when a visit can occur. At this point, [facility] would not be able to open until next week, however this could change. ASSISTANT WOMEN'S BASKETBALL COACH will call pt's daughter when an info visit has been scheduled.
[2016-09-10] MEDS ORDERED: Belladonna Alk-Opium 60 mg Rectal Suppository RECTAL PRN (14:45)
--- NOTE | 2016-09-10 14:58 | PCM.PNMED ---
Subjective Date of Service Sep 10, 2016 Subjective Very restless and ativan helpful. Patient refused oxymask and now on nasal canula at 8L. Patient has met with palliative care and changed code status to DNR/DNI. Cardiology will not proceed with any interventions. Exam Vital Signs Vital Sign - Last Date Time Temp Pulse Resp B/P Pulse Ox O2 Delivery O2 Flow Rate FiO2 09/10/16 12:00 Supplement Oxygen 09/10/16 12:00 36.6 62 24 165/85 85 7.00 Intake and Output 09/09/16 09/09/16 09/10/16 Cumulative From/Thru 15:00 23:00 07:00 09/09/16 17:06 - 09/10/16 06:48 Intake Total 952 ml 952 ml Output Total 400 ml 400 ml Balance 552 ml 552 ml Intake Oral 600 ml 600 ml IV Total 352 ml 352 ml Output Urine Total 400 ml 400 ml Exam General - Age appropriate female laying comfortably in bed, in no acute distress. HEENT - Normocephalic, atraumatic, normal conjunctivae, moist mucosa Neck - Supple, nontender, no jugular venous distention, lymphadenopathy noted. Cardiac - Regular rate and rhythm, bradycardic Lungs - Clear to auscultation bilaterally, decreased air movement but no wheezes /rales/rhonchi Abd - Soft, nontender, nondistended, normoactive bowel sounds Extremities - Pulses intact/equal bilaterally. Blue skin discoloration fingertips lateral consistent with Raynaud's. No clubbing or edema Psych - Normal mood and affect, appropriate in response. Lab and Diagnostics Result Diagram: 09/10/16 0310 09/10/16 0310 X-Rays, CTs and MRIs X-RAY CHEST ONE VIEW, PORTABLE (Dictated by: Armida Almaraz M.D. on 09/09/2016 at 17:31) FINDINGS: -Surgical changes and devices: None. -Lungs and pleura: Lateral interstitial and air space infiltrates are compatible with pulmonary edema. No pleural effusions or pneumothorax. -Mediastinum: Mediastinal contours appear normal. Heart size is markedly increased. -Bones and chest wall: No suspicious bony lesions. Overlying soft tissues appear unremarkable. IMPRESSION: Congestive heart failure. Marked cardiomegaly. Approved by: Armida Almaraz M.D. on 09/09/2016 at 17:32 Assessment & Plan Myah Mera is a 71 -year-old female with history of CREST syndrome, pulmonary fibrosis with pulmonary attention, recently diagnosed colon cancer, and hypothyroidism transferred to [facility] from [facility] with concern for cardiac tamponade. She presented with complain of worsening shortness of breath and found to have 3rd degree atrioventricular block and a large pericardial effusion but no evidence of cardiac tamponade. Admitted to the critical care unit and cardiology consulted for potential pacemaker placement. 1. 3rd degree atrioventricular block, present on admission. Active -Cardiology consulted. Initially the plan was to have a pacemaker placed. However, since patient's life expectancy is not promising due to colon cancer in patient's refusal to undergo any treatment for it, cardiology did not seem to be inclined to have a pacemaker placed. Palliative care has met with the patient and the family. Patient is now DO NOT RESUSCITATE DO NOT INTUBATE only with comfort care. Ativan, vicodin, acetaminophen, zofran, dilaudid by mouth as needed for comfort. - Per Palliative care, patient does not want us to start a continuous IV opiate infusion, if there is no urgent/emergent issue making patient uncomfortable. If pt has a critical heart arrhythmia or cardiac arrest--> the plan should be to start an opiate infusion (dilaudid or fentanyl) as she has a TRUE ALLERGY to morphine (hives). 2. Pericardial effusion, present on admission. Active. - See above 4. Colon Cancer diagnosed via CT in 10/2015 3. 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 Presumed stable. 5. Chronic hypothyroidism, present on admission. Presumed stable. 6. Chronic GERD, present on admission. Stable 7. Chronic hypertension, present on admission. Stable. 8. Chronic hyperlipidemia, present on admission. Presumed stable. 9. Chronic vertigo, present on admission. Stable Disposition: likely home with hospice. Per palliative care, patient is not strong enough to travel home with the family. They recommend ambulance transport home. They also believe that family would have difficulties managing her at home without hospice as back-up. The do not recommend sending her home without hospice in place, as this would likely result in a re-admission over the weekend. Pain Evaluation: Adequate Pain Control GI Prophylaxis: Proton Pump Inhibitor VTE Prophylaxis: Sub-Q Enoxaparin Resuscitation Status: DNR/DNI:Do Not Resuscitate/Intubate Attending Statement The patient was seen and examined together with Dr. Cody on 09/10/2016 and I agree with the history, exam and plan as outlined in the note above. . Hilda Cody DO Sep 10, 2016 14:58 Marques Rosario MD Sep 13, 2016 17:19 plan and risk for adverse event. GI Prophylaxis: Proton Pump Inhibitor VTE Prophylaxis: Sub-Q Enoxaparin Resuscitation Status: CPR: Attempt Resuscitation Hilda Cody DO Sep 10, 2016 14:58
--- NOTE | 2016-09-10 15:25 | NUR ---
Comfort Care Patient was made comfort care around [address] Person and a polst form. Patient taken off of tele monitor. O2 at 8L NC remains. Awaiting comfort care orders..
--- NOTE | 2016-09-10 16:05 | PCM.CONPAL ---
Date of Service Sep 10, 2016 Date of Hospital Admission: Sep 09, 2016 at 18:06 Date of Palliative Consult: Sep 10, 2016 Requesting Provider: Marques Rosario MD Reason Palliative Care Consult: Goals of Care Discussion Reason for Consultation Palliative care referral kindly received from Dr. Rosario who requests assist with goals of care. Pt is 71 yof who appears to live at home. She is admitted from [facility] and comes with concerns regarding cardiac tamponade. Pt known to have history of pulmonary fibrosis and CREST syndrome. Pt noted to have become increasingly frail over past 6 months and is currently felt to have a complete heart block. Cardiology notes that her heart could fail at any time essentially. Pt is known to have received a diagnosis of colon cancer about one year ago but she was not able to pursue any treatments given the frailty of her condition. Noted that at this admission, pt changed her code status from DNR/ DNI to that of full code. Pt dtr and POA is Margie TrotterStella at [phone] Additional dtr is Aicha Melendez at [phone] or [phone]. Hospital Unit @time of consult: Critical Care (room 2015) Palliative Care Recommendation Summary of palliative recommendations: -Symptom management (Pain/other): 1. Palliative Care will write a limited comfort care set this afternoon to cover pain, anxiety, bladder spasms and constipation management with oral medications that can be sent as prescriptions for home use. 2. In the meantime, pt's daughter does not want us to start a continuous IV opiate infusion, if there is no urgent/emergent issue making patient uncomfortable. If pt has a critical heart arrhythmia or cardiac arrest--> the plan should be to start an opiate infusion (dilaudid or fentanyl) as she has a TRUE ALLERGY to morphine (hives). -DPOA/Advanced Directives/POLST: 1. Code status changed from FULL to DNR/DNI today after lengthy discussion with patient and daughter and multiple family members 2. Pt is not capacitated due to intermittent confusion and hallucinations ( even during our attempts at discussion). Daughter Margie Harper is HCPOA 3. POLST was signed stating DNR at [facility] with patient and her care connector (and daughter present) on 03/12/14 and again reviewed and approved on 06/17/2016, but early at beginning of this admission, pt had reversed her decision, asking for FULL code. Now after lengthy discussion with palliative care team today, daughter signed a POLST that states DNR/DNI/comfort care. Original on front of our paper chart and daughter has copies. PC office has copy in our office. 4. Daughter has consented to a hospice information visit and CM is arranging this. It will be sometime on Monday 09/11, but exact time is not known at this writing. Disposition: likely home with hospice. In my opinion, pt is not strong enough to travel by cabulance and her heart dysrrhythmias make this risky. I would recommend ambulance transport home. In my clinical opinion, this family would have difficulties managing her at home without hospice as back-up. I do not recommend sending her home without hospice in place, as this would likely result in a re-admission over the weekend. Family support: is excellent. There are multiple family members involved who want to be with patient at bedside. Problems: Resuscitation Status Resuscitation Status: DNR/DNI:Do Not Resuscitate/Intubate . Advanced Care Planning Address: POLST, Code status change Pain: Mild Symptom management: Anxiety, Constipation Pt History History of Present Illness 71-year-old woman history of crest syndrome with pulmonary fibrosis since 2005, colon cancer, and suspected pericardial effusion admitted with failure to thrive. Patient has delirium and is unable to provide a clear story at the time of admission last night (09/09). Patient's daughter, Margie, states that she is the DPOA and takes care of her mother. Patient was diagnosed with crest syndrome about 11 years ago. She has slowly declined over time. About a year ago, she was diagnosed with colon cancer based on a CT scan done in [place]. She was also noted to have a pericardial effusion at that time. Per daughter, pericardiocentesis was not done as the pericardial effusion was felt to be posterior. Over the past 6 months, patient has had significant decline in her overall function and is unable to take care of her ADLs. About 3 weeks ago, she fell and has been needing constant care by her daughter. She is now living with her daughter. Patient's primary complaints are dyspnea and fatigue. Medications Current Medications: Current Medications Atropine Sulfate 0.5 mg ONCE PRN IVPUSH Last administered on 09/09/16 17:21; Admin Dose 0.5 MG; Start 09/09/16 at 17:15; Stop 09/09/16 at 17:19; Status DC Al Hydrox/Mg Hydrox/Simethicone 30 ml Q6 PRN PO; Start 09/09/16 at 18:55; Status Cancel Ondansetron HCl Dose range: 4 mg to 8 mg Q4H PRN IVPUSH; Start 09/09/16 at 18:55 ; Status Cancel Acetaminophen 975 mg Q6H PRN PO; Start 09/09/16 at 18:55; Status Cancel Ondansetron HCl 4 to 8 mg Q4H PRN IVPUSH Last administered on 09/10/16 08:20; Admin Dose 4 MG; Start 09/09/16 at 20:00 Acetaminophen 650 mg Q4H PRN PO; Start 09/09/16 at 20:00 Al Hydrox/Mg Hydrox/Simethicone 30 ml Q6H PRN PO; Start 09/09/16 at 20:00 Enoxaparin Sodium 40 mg 2030 SUBQ Last administered on 09/09/16 21:24; Admin Dose 40 MG; Start 09/09/16 at 20:30 Acetaminophen/ Hydrocodone Bitart 1 tablet HS PRN PO Last administered on 23:34; Admin Dose 1 TABLET; Start 09/09/16 at 23:30 Patient Own Medication TADALAFIL 20 MG, 40 MG... HS PO Last administered on 01:10; Admin Dose 2 EA; Start 09/10/16 at 00:24 Patient Own Medication TREPROSTINIL 2 MG, 2 MG PO TID TID PO; Start 09/10/16 at 08:30 Sodium Chloride 1,000 ml @ 75 mls/hr [id number] IV Last administered on 09/10/16 00:30; Admin Dose 75 MLS/HR; Start 09/10/16 at 00:20; Stop 09/10/16 at 11:43; Status DC Lorazepam 0.5 mg Q2 PRN PO Last administered on 09/10/16 14:27; Admin Dose 0.5 MG; Start 09/10/16 at 10:00 Hydromorphone HCl 0.5 mg Q1H PRN PO; Start 09/10/16 at 10:00 Belladonna Alkaloids/Opium 60 mg BID PRN RECTAL; Start 09/10/16 at 14:45 Scheduled Ambrisentan (Letairis) 10 Mg Tablet 10 MG PO HS Aspirin (Aspirin) 81 Mg Tablet 81 MG PO HS Atorvastatin (Lipitor) 10 Mg Tab 10 MG PO HS Calcium Carbonate (Calcium) 600 Mg Tablet 600 MG PO DAILYWM Cranberry Conc/C/Bacill Coag (Cranberry Tablet) 1 Each Tablet 12 EACH PO QAM Esomeprazole Magnesium (Nexium) 40 Mg Capsule.dr 40 MG PO BIDWM Folic Acid (Folic Acid) 1 Mg Tablet 1 MG PO QAM Levothyroxine (Levothyroxine) 75 Mcg Tablet 75 MCG PO QAM Multivitamin (Multivitamins) 1 Each Capsule 1 EACH PO DAILYWM Mycophenolate Mofetil (Mycophenolate Mofetil) 500 Mg Tablet 500 MG PO BID Nifedipine ER (Nifedipine ER) 60 Mg Tab.er.24 60 MG PO HS Potassium Chloride ER (Potassium Chloride ER) 10 Meq Tablet 30 MEQ PO DAILYWM Potassium 30 meq in AM and 20 meq in PM Potassium Chloride ER (Potassium Chloride ER) 10 Meq Tablet 20 MEQ PO DAILYWD Potassium 30 meq in AM and 20 meq in PM Prednisone (PredniSONE) 5 Mg Tab 5 MG PO QAM Spironolactone (Spironolactone) 25 Mg Tablet 25 MG PO QAM Tadalafil (Adcirca) 20 Mg Tablet 40 MG PO HS Torsemide (Torsemide) 10 Mg Tablet 5 MG PO QAM Trazodone (Trazodone) 100 Mg Tablet 100 MG PO HS Treprostinil Diolamine (Orenitram ER) 1 Mg Tablet.er 2 MG PO TID Scheduled PRN Hydrocodone-Acetaminophen 5-325 mg (Hydrocodone-Acetaminophen 5-325 mg) 1 Each Tablet 2 EACH PO DAILY PRN PRN For Pain Promethazine HCl/Codeine (Prometh-Codein 6.25-10 mg/5 ml) 6.25 Mg-10 Mg/5 Ml (5 Ml) Syrup 10 ML PO DAILY PRN PRN For Nausea Objective Findings Exam Vital Sign - Last Date Time Temp Pulse Resp B/P Pulse Ox O2 Delivery O2 Flow Rate FiO2 09/10/16 15:00 36.5 53 18 158/50 91 Nasal Cannula 8.00 Intake and Output 09/09/16 09/09/16 09/10/16 Cumulative From/Thru 14:59 22:59 06:59 09/09/16 17:06 - 09/10/16 06:48 Intake Total 952 ml 952 ml Output Total 400 ml 400 ml Balance 552 ml 552 ml Intake Oral 600 ml 600 ml IV Total 352 ml 352 ml Output Urine Total 400 ml 400 ml General: Oriented, Person, Place, Other (confused with intermittent hallucinations, appears alert and speaks with provider, but does not remember what is discussed.) HEENT: Atraumatic, EOMI, Scleral Anicteric, Mucous Membr Moist/[place] Heart: Normal S1, S2, Dysrhythmia Present, Systolic Murmur Lungs: Clear to Auscultation, Diminished Abdomen: Benign Neuro: Arousable, Follows Commands, Spontaneous Eye Opening, Weakness Extremities: Warm, No Edema Lab/Diagnostics Lab and Diagnostics 09/10/16 0310 X-RAY CHEST ONE VIEW, PORTABLE (Dictated by: Armida Almaraz M.D. on 09/09/2016 at 17:31) FINDINGS: -Surgical changes and devices: None. -Lungs and pleura: Lateral interstitial and air space infiltrates are compatible with pulmonary edema. No pleural effusions or pneumothorax. -Mediastinum: Mediastinal contours appear normal. Heart size is markedly increased. -Bones and chest wall: No suspicious bony lesions. Overlying soft tissues appear unremarkable. IMPRESSION: Congestive heart failure. Marked cardiomegaly. Time spent Total time 90 minutes; >50% face to face with patient and/or family, providing counselling regarding plans and recommendations, and in care coordination with his/her medical teams. I also spent an additional 60 minutes counseling for advanced care planning with the patient/the patients family/the surrogate decision maker. Hanane Person MD Sep 10, 2016 16:05 -Bones and chest wall: No suspicious bony lesions. Overlying soft tissues appear unremarkable.
[2016-09-10] MEDS ORDERED: Ondansetron 2 mg/mL 2 mL Inj IVPUSH PRN (16:25)
[2016-09-10] MEDS ORDERED: Haloperidol 5 mg/mL Inj IVPUSH PRN (16:25)
[2016-09-10] MEDS ORDERED: Artificial Tears 15 mL Ophthalmic Solution AFFECT_EYE PRN (16:25)
[2016-09-10] MEDS ORDERED: fentaNYL-PF 50 mCg/mL 2 mL Inj IVPUSH PRN (16:25)
[2016-09-10] MEDS ORDERED: fentaNYL 2,500 mCg/250 mL IV Premix IV SCH (18:00)
--- NOTE | 2016-09-10 19:17 | NUR ---
Fentanyl gtt was increased to 25 mcg/hr per family wanting to take patient off of oxygen. Orders to transfer patient to [facility]. Report phoned to RADHA Acevedo.
[2016-09-10] MEDS ORDERED: HYDROcodone-APAP 5-325 mg Tablet PO SCH (21:00)
--- NOTE | 2016-09-10 22:00 | NUR ---
Arrival to [facility]/Comfort care Pt arrived to [facility] at 1915. Pt on RA. Pt restless in bed, RR 38. Titrated fentanyl drip up to 50mcg/hr per orders in emar. Placed pt on 5L O2 NC for comfort. At 2019 pt continues to be tachypneic, RR 34. Titrated drip up to 60mcg/hr. Pt resting in bed after medication admin. Addendum: 09/11/16 at 0600 by ALEJANDRO GOFF RN Pt awoke in bed, looked at nursing staff and stated "go away." Pt otherwise sedated this shift. RR decreased to 20's. No signs or symptoms of pain observed.
[2016-09-11 06:38] VITALS: RESP 30
[2016-09-11] MEDS: TREPROSTINIL PO SCH (08:30)
--- NOTE | 2016-09-11 08:41 | PCM.PALLBR ---
Palliative Care Recommendation Summary of palliative recommendations: -Symptom management (Pain/other): 1. Pt became agitated in the early evening 09/10 and family decided they wanted to start the opiate infusion I counseled them about earlier in the day. They contacted CCU RN who called me at home and asked for start of a low dose opiate infusion. We started fentanyl at 10mcg/hr (as pt is small framed and relatively opiate naive). It was gradually titrated up to good pain relief throughout the evening. At time of transfer to the floor, she had increased pain , dyspnea and agitation with the movement during transfer, and fentanyl was eventually at 60mcg/hr which helped patient rest peacefully. -DPOA/Advanced Directives/POLST: 1. Pt is now DNR/DNI/comfort measures. POLST on chart signed 09/10 by LINDA Hanson. While assessing patient on spinning frame changer rounds and discussing her prognosis with family, I explained that she was having apnea and her pulse was thready. While listening to her heart I heard it drop to 41 bpm then up to 114bpm, then it dropped away and was inaudible. I no longer could feel her pulse after a few minutes. I listened and she had no heartbeat x 5 minutes. Her pupils were fully dilated. As she was dying, I explained these observations to family, and they sat closer to bedside and held her hand. I pronounced her at 7:30a.m. I contacted the RN station, asking them to reach her a.m. RN I contacted her Attending, Dr. Velez. I gave supportive listening to family at bedside. Problems: Resuscitation Status Resuscitation Status: DNR/DNI:Do Not Resuscitate/Intubate Total time 35 minutes; >50% face to face with patient and/or family, providing counselling regarding plans and recommendations, and in care coordination with his/her medical teams. Palliative Brief Note Date of Service Sep 11, 2016 . Patient Identification: This is a intermittently confused 71-year-old woman history of crest syndrome with pulmonary fibrosis since 2006, colon cancer, and suspected pericardial effusion admitted on 09/09/16 with failure to thrive. Patient has delirium and is unable to provide a clear story at the time of admission, and subsequently at time of Palliative Care initial meeting 09/10. Patient's daughter, Margie, is the DPOA and takes care of her mother. She reports that her mother was diagnosed with crest syndrome about 11 years ago. She has slowly declined over time. About a year ago, she was diagnosed with colon cancer based on a CT scan done in [place], and she elected to not have any work-up as she felt she was too weak to undergo surgery or chemotherapy. She was also noted to have a pericardial effusion at that time. Per daughter, pericardiocentesis was not done as the pericardial effusion was felt to be posterior. Over the past 6 months, patient has had significant decline in her overall function and is unable to take care of her ADLs. About 3 weeks ago, she fell and has been needing constant care by her daughter. She is now living with her daughter. Patient's primary complaints are dyspnea and fatigue. Subjective: Daughter Margie and her daughter stayed overnight and have noticed that patient reported in middle of night feeling warm and was moving covers off , and yet was cool to their touch. They agreed that she had some pain last evening at time of transfer to floor, but afterwards, pain meds were increased and she was comfortable. Objective: RN reports that patient's fentanyl infusion is now at 60mcg/hr with 4L NC oxygen. It was increased overnight at time of transfer with good effect. General: patient lying in bed somnolent, with guppy breathing. HEENT: bilateral templar wasting, pupil equal and 3mm. Heart: Normal S1, S2, Dysrhythmia Present, Systolic Murmur Lungs: Diminished irregular breaths with 5-7 sec apnea observed in between paradoxical breaths Abdomen: nontender, decreased bowel sounds. Extremities: Warm, damp, No Edema Hanane Person MD Sep 11, 2016 08:41 Hanane Person MD Sep 11, 2016 08:41 Objective: RN reports that patient's fentanyl infusion is now at 60mcg/hr with 4L NC oxygen. It was increased overnight at time of transfer with good effect. General: patient lying in bed somnolent, with guppy breathing. HEENT: bilateral templar wasting, pupil equal and 3mm. Heart: Normal S1, S2, Dysrhythmia Present, Systolic Murmur Lungs: Diminished irregular breaths with 5-7 sec apnea observed in between paradoxical breaths Abdomen: nontender, decreased bowel sounds. Extremities: Warm, damp, No Edema Hanane Person MD Sep 11, 2016 08:41
--- NOTE | 2016-09-11 09:04 | NUR ---
Pt pronounced at 0730 by . Family was @bs. Family currently still in room visiting.
--- NOTE | 2016-09-11 11:48 | NUR ---
Narcotic Waste Wasted 145mL fentanyl with Jennifer Jackson.
--- NOTE | 2016-09-11 13:28 | PCM.DIMED ---
Discharge Instructions Date of Service Sep 11, 2016 Dates of Hospitalization Sep 09, 2016 at 18:06 Discharge Diagnosis Discharge Diagnosis 1. 3rd degree atrioventricular block, present on admission. Active 2. Pericardial effusion, present on admission. Active. 4. history of Colon Cancer 3. 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 Presumed stable. 5. Chronic hypothyroidism, present on admission. Presumed stable. 6. Chronic GERD, present on admission. Stable 7. Chronic hypertension, present on admission. Stable. 8. Chronic hyperlipidemia, present on admission. Presumed stable. 9. Chronic vertigo, present on admission. Stable Patient at 7:30 AM, cause of bradycardia and 3rd degree heart block Zaina Lr MD Sep 11, 2016 13:28
--- NOTE | 2016-09-11 13:29 | PCM.DC.MED ---
Discharge Summary Date of Service Sep 11, 2016 Dates of Hospitalization Date of Hospital Admission Sep 09, 2016 at 18:06 Date of Discharge: Sep 11, 2016 Providers: Admitting Physician: Marques Rosario MD Primary Care Physician: Susana Jay MD Attending Physician: Marques Rosario MD Diagnosis at Time of Discharge Diagnosis at Time of Discharge 1. 3rd degree atrioventricular block, present on admission. Active 2. Patient at 7:30 Am with family in attendance 3. Pericardial effusion, present on admission. Active. 4. history of Colon Cancer 3. 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 Presumed stable. 5. Chronic hypothyroidism, present on admission. Presumed stable. 6. Chronic GERD, present on admission. Stable 7. Chronic hypertension, present on admission. Stable. 8. Chronic hyperlipidemia, present on admission. Presumed stable. 9. Chronic vertigo, present on admission. Stable Consultations Consult Subjective Date of service Sep 10, 2016 Date of admit Sep 09, 2016 at 18:06 Provider Requesting Consult Primary Care Physician Primary Care Physician: Susana Jay MD Chief Complaint pericardial effusion History of Present Illness 71-year-old woman history of crest syndrome with pulmonary fibrosis since 2005, colon cancer, and suspected pericardial effusion admitted with failure to thrive. Patient has delirium and is unable to provide a clear story. Patient' s daughter, Anastasiia, states that she is the DP OA and takes care of her mother. Patient was diagnosed with crest syndrome about 11 years ago. She has slowly declined over time. About a year ago, she was diagnosed with colon cancer based on a CT scan done in [place]. She was also noted to have a pericardial effusion at that time. Per daughter, pericardiocentesis was not done as the pericardial effusion was felt to be posterior. Over the past 6 months, patient has had significant decline in her overall function and is unable to take care of her ADLs. About 3 weeks ago, she fell and has been eating constant care by her daughter. She is now living with her daughter. Patient's primary complaints are dyspnea and fatigue. The rest of the story is unable to obtain due to patient condition. 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 Scheduled Ambrisentan (Letairis) 10 Mg Tablet 10 MG PO HS (Reported) Aspirin (Aspirin) 81 Mg Tablet 81 MG PO HS (Reported) Atorvastatin (Lipitor) 10 Mg Tab 10 MG PO HS (Reported) Calcium Carbonate (Calcium) 600 Mg Tablet 600 MG PO DAILYWM (Reported) Cranberry Conc/C/Bacill Coag (Cranberry Tablet) 1 Each Tablet 12 EACH PO QAM ( Reported) Esomeprazole Magnesium (Nexium) 40 Mg Capsule.dr 40 MG PO BIDWM (Reported) Folic Acid (Folic Acid) 1 Mg Tablet 1 MG PO QAM (Reported) Levothyroxine (Levothyroxine) 75 Mcg Tablet 75 MCG PO QAM (Reported) Multivitamin (Multivitamins) 1 Each Capsule 1 EACH PO DAILYWM (Reported) Mycophenolate Mofetil (Mycophenolate Mofetil) 500 Mg Tablet 500 MG PO BID ( Reported) Nifedipine ER (Nifedipine ER) 60 Mg Tab.er.24 60 MG PO HS (Reported) Potassium Chloride ER (Potassium Chloride ER) 10 Meq Tablet 30 MEQ PO DAILYWM ( Reported) Potassium 30 meq in AM and 20 meq in PM Potassium Chloride ER (Potassium Chloride ER) 10 Meq Tablet 20 MEQ PO DAILYWD ( Reported) Potassium 30 meq in AM and 20 meq in PM Prednisone (PredniSONE) 5 Mg Tab 5 MG PO QAM (Reported) Spironolactone (Spironolactone) 25 Mg Tablet 25 MG PO QAM (Reported) Tadalafil (Adcirca) 20 Mg Tablet 40 MG PO HS (Reported) Torsemide (Torsemide) 10 Mg Tablet 5 MG PO QAM (Reported) Trazodone (Trazodone) 100 Mg Tablet 100 MG PO HS (Reported) Treprostinil Diolamine (Orenitram ER) 1 Mg Tablet.er 2 MG PO TID (Reported) Scheduled PRN Hydrocodone-Acetaminophen 5-325 mg (Hydrocodone-Acetaminophen 5-325 mg) 1 Each Tablet 2 EACH PO DAILY PRN PRN For Pain (Reported) Promethazine HCl/Codeine (Prometh-Codein 6.25-10 mg/5 ml) 6.25 Mg-10 Mg/5 Ml (5 Ml) Syrup 10 ML PO DAILY PRN PRN For Nausea (Reported) Discontinued Medications Cefuroxime Axetil (Ceftin) 500 Mg Tablet 500 MG PO BID Fluticasone Propionate (Flonase Allergy Relief) 50 Mcg/Actuation [place].susp 1 SPRAY NASAL DAILY Meclizine (Bonine) 25 Mg Tab.chew 25 MG PO TID Meclizine (Bonine) 25 Mg Tab.chew 25 MG PO TID PRN PRN For Dizziness Torsemide (Torsemide) 20 Mg Tablet 20 MG PO DAILY (Reported) Treprostinil Diolamine (Orenitram ER) 1 Mg Tablet.er 2 MG PO TID (Reported) Current Inpatient Medications Current Medications Atropine Sulfate 0.5 mg ONCE PRN IVPUSH Last administered on 09/09/16 17:21; Admin Dose 0.5 MG; Start 09/09/16 at 17:15; Stop 09/09/16 at 17:19; Status DC Al Hydrox/Mg Hydrox/Simethicone 30 ml Q6 PRN PO; Start 09/09/16 at 18:55; Status Cancel Ondansetron HCl Dose range: 4 mg to 8 mg Q4H PRN IVPUSH; Start 09/09/16 at 18:55 ; Status Cancel Acetaminophen 975 mg Q6H PRN PO; Start 09/09/16 at 18:55; Status Cancel Ondansetron HCl 4 to 8 mg Q4H PRN IVPUSH Last administered on 09/10/16 08:20; Admin Dose 4 MG; Start 09/09/16 at 20:00 Acetaminophen 650 mg Q4H PRN PO; Start 09/09/16 at 20:00 Al Hydrox/Mg Hydrox/Simethicone 30 ml Q6H PRN PO; Start 09/09/16 at 20:00 Enoxaparin Sodium 40 mg 2030 SUBQ Last administered on 09/09/16 21:24; Admin Dose 40 MG; Start 09/09/16 at 20:30 Acetaminophen/ Hydrocodone Bitart 1 tablet HS PRN PO Last administered on 23:34; Admin Dose 1 TABLET; Start 09/09/16 at 23:30 Patient Own Medication TADALAFIL 20 MG, 40 MG... HS PO Last administered on 01:10; Admin Dose 2 EA; Start 09/10/16 at 00:24 Patient Own Medication TREPROSTINIL 2 MG, 2 MG PO TID TID PO; Start 09/10/16 at 08:30 Sodium Chloride 1,000 ml @ 75 mls/hr [id number] IV Last administered on 09/10/16t 00:30; Admin Dose 75 MLS/HR; Start 09/10/16 at 00:20 Lorazepam 0.5 mg Q2 PRN PO; Start 09/10/16 at 10:00 Hydromorphone HCl 0.5 mg Q1H PRN PO; Start 09/10/16 at 10:00 Allergies: Coded Allergies: Sulfa (Sulfonamide Antibiotics) (Verified Allergy, Intermediate, Nausea, Vomiting, 09/09/16) clarithromycin (Unverified Allergy, Unknown, Hives, 09/10/16) levofloxacin (Unverified Allergy, Unknown, Hives, 09/10/16) morphine (Verified Allergy, Unknown, HIVES, 09/09/16) amoxicillin (Verified Adverse Reaction, Mild, Nausea,Vomiting, 09/10/16) "Makes me feel weird", Ok to use Augmentin Family History Family History Daughter is healthy. Social History Hx Alcohol Use: NoHx Substance Use: No Smoking Status: Unknown if Ever Smoker Exam Vital Signs Vital Sign - Last Date Time Temp Pulse Resp B/P Pulse Ox O2 Delivery O2 Flow Rate FiO2 09/10/16 08:00 Supplement Oxygen 09/10/16 08:00 36.4 56 23 170/50 91 9.00 Intake and Output 09/09/16 09/09/16 09/10/16 Cumulative From/Thru 15:00 23:00 07:00 09/09/16 17:06 - 09/10/16 06:48 Intake Total 952 ml 952 ml Output Total 400 ml 400 ml Balance 552 ml 552 ml Intake Oral 600 ml 600 ml IV Total 352 ml 352 ml Output Urine Total 400 ml 400 ml Objective General appearance: in mild distress, frail, pleasant, cooperative HEET: Normocephalic atraumatic, no scleral icterus, tongue midline, mucous membranes moist Neck: supple Cardiovascular: armani, regular, distant S1 and S2, no JVD, 1+ peripheral edema Respiratory: Fair aeration, coarse Abdomen: Soft, nontender, obese, + bowel sounds Neuro: Alert, no facial droop, tongue midline, no gross motor deficits Psych: anxious Skin: no rashes on face, neck, and lower extremities Lab and Diagnostics Result Diagram: 09/10/16 0310 09/10/16 0310 X-Rays, CTs and MRIs Echo 09/09/2016: 1) Large circumferential pericardial effusion present. 2) Significant respiratory variation of the mitral inflow, late diastolic to early systolic right atrial collapse, and early diastolic right ventricular inadequate filling suggests tamponade. 3) Grossly hyperdynamic left ventricular function. 4) Grossly normal right ventricular size with mildly to moderately reduced function. 5) No prior Echo available for comparison. 12-lead ECG ECG on admission shows complete heart block with junctional rhythm the 40s. Assessment & Plan Assessment 71-year-old woman history of crest syndrome with pulmonary fibrosis since 2005, colon cancer, and suspected pericardial effusion admitted with failure to thrive and concern for tamponade physiology. # Pericardial effusion: Patient's pericardial effusion is large on the echocardiogram. There are early cortical cardiographic signs of Physiology. She is not hypotensive, making clinical temponade less likely at present but will likely occur with time if no pericardiocentesis is done. Etiology of pericardial effusion is suspected to be malignant then given history of untreated colon cancer. I spent significant time educating the vision and her daughter about patient's critical condition. While therapeutic pericardiocentesis will probably make her feel better short-term, he did not term prognosis remains poor. It is unlikely she will be able to live independently. After prolonged discussion with me and palliative care, patient and family are leaning towards not doing invasive procedures and focusing on comfort. We will respect patient's wishes and are available for further help as needed. # Complete heart block: Patient has complete heart block based on the ECG with junctional rhythm. Given her blood pressure is okay, there is no emergent need to bring the pacemaker. Furthermore, patient's prognosis is poor and she is unlikely to live for more than 6 months. Therefore, permanent pacemaker placement is not indicated at this time. # Colon cancer: defer to primary team. Recommend getting records from [place]. # CREST syndrome with pulmonary fibrosis and severe pulmonary hypertension: Patient's crest syndrome with pulmonary fibrosis and pulmonary hypertension are severe and end-stage. Recommend symptomatic management at this time. Pain Evaluation: Adequate Pain Control VTE Prophylaxis Indicated: Meets Criteria for Anticoag Therapy VTE Prophylaxis: Sub-Q Enoxaparin Resuscitation Status: CPR: Attempt Resuscitation Time spent I spent 70 minutes of critical care time evaluating the patient, reviewing her data, speaking with the patient and family, and coordinating care with palliative care team. Kody Borden MD PATIENT NAME: MYAH KOEHLER Date of Service Sep 10, 2016 Date of Hospital Admission: Sep 09, 2016 at 18:06 Date of Palliative Consult: Sep 10, 2016 Requesting Provider: Marques Rosario MD Reason Palliative Care Consult: Goals of Care Discussion Reason for Consultation Palliative care referral kindly received from Dr. Rosario who requests assist with goals of care. Pt is 71 yof who appears to live at home. She is admitted from [facility] and comes with concerns regarding cardiac tamponade. Pt known to have history of pulmonary fibrosis and CREST syndrome. Pt noted to have become increasingly frail over past 6 months and is currently felt to have a complete heart block. Cardiology notes that her heart could fail at any time essentially. Pt is known to have received a diagnosis of colon cancer about one year ago but she was not able to pursue any treatments given the frailty of her condition. Noted that at this admission, pt changed her code status from DNR/ DNI to that of full code. Pt dtr and POA is Margie Douglas at [phone] Additional dtr is Aicha Melendez at [phone] or [phone]. Hospital Unit @time of consult: Critical Care (room 2015) Palliative Care Recommendation Summary of palliative recommendations: -Symptom management (Pain/other): 1. Palliative Care will write a limited comfort care set this afternoon to cover pain, anxiety, bladder spasms and constipation management with oral medications that can be sent as prescriptions for home use. 2. In the meantime, pt's daughter does not want us to start a continuous IV opiate infusion, if there is no urgent/emergent issue making patient uncomfortable. If pt has a critical heart arrhythmia or cardiac arrest--> the plan should be to start an opiate infusion (dilaudid or fentanyl) as she has a TRUE ALLERGY to morphine (hives). -DPOA/Advanced Directives/POLST: 1. Code status changed from FULL to DNR/DNI today after lengthy discussion with patient and daughter and multiple family members 2. Pt is not capacitated due to intermittent confusion and hallucinations ( even during our attempts at discussion). Daughter Margie Harper is HCPOA 3. POLST was signed stating DNR at [facility] with patient and her software client architect (and daughter present) on 03/12/14 and again reviewed and approved on 06/17/2016, but early at beginning of this admission, pt had reversed her decision, asking for FULL code. Now after lengthy discussion with palliative care team today, daughter signed a POLST that states DNR/DNI/comfort care. Original on front of our paper chart and daughter has copies. PC office has copy in our office. 4. Daughter has consented to a hospice information visit and CM is arranging this. It will be sometime on Monday 09/11, but exact time is not known at this writing. Disposition: likely home with hospice. In my opinion, pt is not strong enough to travel by cabulance and her heart dysrrhythmias make this risky. I would recommend ambulance transport home. In my clinical opinion, this family would have difficulties managing her at home without hospice as back-up. I do not recommend sending her home without hospice in place, as this would likely result in a re-admission over the weekend. Family support: is excellent. There are multiple family members involved who want to be with patient at bedside. Problems: Resuscitation Status Resuscitation Status: DNR/DNI:Do Not Resuscitate/Intubate . Advanced Care Planning Address: POLST, Code status change Pain: Mild Symptom management: Anxiety, Constipation Pt History History of Present Illness 71-year-old woman history of crest syndrome with pulmonary fibrosis since 2006, colon cancer, and suspected pericardial effusion admitted with failure to thrive. Patient has delirium and is unable to provide a clear story at the time of admission last night (09/09). Patient's daughter, Margie, states that she is the DPOA and takes care of her mother. Patient was diagnosed with crest syndrome about 11 years ago. She has slowly declined over time. About a year ago, she was diagnosed with colon cancer based on a CT scan done in [place]. She was also noted to have a pericardial effusion at that time. Per daughter, pericardiocentesis was not done as the pericardial effusion was felt to be posterior. Over the past 6 months, patient has had significant decline in her overall function and is unable to take care of her ADLs. About 3 weeks ago, she fell and has been needing constant care by her daughter. She is now living with her daughter. Patient's primary complaints are dyspnea and fatigue. Medications Current Medications: Current Medications Atropine Sulfate 0.5 mg ONCE PRN IVPUSH Last administered on 09/09/16 17:21; Admin Dose 0.5 MG; Start 09/09/16 at 17:15; Stop 09/09/16 at 17:19; Status DC Al Hydrox/Mg Hydrox/Simethicone 30 ml Q6 PRN PO; Start 09/09/16 at 18:55; Status Cancel Ondansetron HCl Dose range: 4 mg to 8 mg Q4H PRN IVPUSH; Start 09/09/16 at 18:55 ; Status Cancel Acetaminophen 975 mg Q6H PRN PO; Start 09/09/16 at 18:55; Status Cancel Ondansetron HCl 4 to 8 mg Q4H PRN IVPUSH Last administered on 09/10/16 08:20; Admin Dose 4 MG; Start 09/09/16 at 20:00 Acetaminophen 650 mg Q4H PRN PO; Start 09/09/16 at 20:00 Al Hydrox/Mg Hydrox/Simethicone 30 ml Q6H PRN PO; Start 09/09/16 at 20:00 Enoxaparin Sodium 40 mg 2030 SUBQ Last administered on 09/09/16 21:24; Admin Dose 40 MG; Start 09/09/16 at 20:30 Acetaminophen/ Hydrocodone Bitart 1 tablet HS PRN PO Last administered on 23:34; Admin Dose 1 TABLET; Start 09/09/16 at 23:30 Patient Own Medication TADALAFIL 20 MG, 40 MG... HS PO Last administered on 01:10; Admin Dose 2 EA; Start 09/10/16 at 00:24 Patient Own Medication TREPROSTINIL 2 MG, 2 MG PO TID TID PO; Start 09/10/16 at 08:30 Sodium Chloride 1,000 ml @ 75 mls/hr [id number] IV Last administered on 09/10/16 00:30; Admin Dose 75 MLS/HR; Start 09/10/16 at 00:20; Stop 09/10/16 at 11:43; Status DC Lorazepam 0.5 mg Q2 PRN PO Last administered on 09/10/16t 14:27; Admin Dose 0.5 MG; Start 09/10/16 at 10:00 Hydromorphone HCl 0.5 mg Q1H PRN PO; Start 09/10/16 at 10:00 Belladonna Alkaloids/Opium 60 mg BID PRN RECTAL; Start 09/10/16 at 14:45 Scheduled Ambrisentan (Letairis) 10 Mg Tablet 10 MG PO HS Aspirin (Aspirin) 81 Mg Tablet 81 MG PO HS Atorvastatin (Lipitor) 10 Mg Tab 10 MG PO HS Calcium Carbonate (Calcium) 600 Mg Tablet 600 MG PO DAILYWM Cranberry Conc/C/Bacill Coag (Cranberry Tablet) 1 Each Tablet 12 EACH PO QAM Esomeprazole Magnesium (Nexium) 40 Mg Capsule.dr 40 MG PO BIDWM Folic Acid (Folic Acid) 1 Mg Tablet 1 MG PO QAM Levothyroxine (Levothyroxine) 75 Mcg Tablet 75 MCG PO QAM Multivitamin (Multivitamins) 1 Each Capsule 1 EACH PO DAILYWM Mycophenolate Mofetil (Mycophenolate Mofetil) 500 Mg Tablet 500 MG PO BID Nifedipine ER (Nifedipine ER) 60 Mg Tab.er.24 60 MG PO HS Potassium Chloride ER (Potassium Chloride ER) 10 Meq Tablet 30 MEQ PO DAILYWM Potassium 30 meq in AM and 20 meq in PM Potassium Chloride ER (Potassium Chloride ER) 10 Meq Tablet 20 MEQ PO DAILYWD Potassium 30 meq in AM and 20 meq in PM Prednisone (PredniSONE) 5 Mg Tab 5 MG PO QAM Spironolactone (Spironolactone) 25 Mg Tablet 25 MG PO QAM Tadalafil (Adcirca) 20 Mg Tablet 40 MG PO HS Torsemide (Torsemide) 10 Mg Tablet 5 MG PO QAM Trazodone (Trazodone) 100 Mg Tablet 100 MG PO HS Treprostinil Diolamine (Orenitram ER) 1 Mg Tablet.er 2 MG PO TID Scheduled PRN Hydrocodone-Acetaminophen 5-325 mg (Hydrocodone-Acetaminophen 5-325 mg) 1 Each Tablet 2 EACH PO DAILY PRN PRN For Pain Promethazine HCl/Codeine (Prometh-Codein 6.25-10 mg/5 ml) 6.25 Mg-10 Mg/5 Ml (5 Ml) Syrup 10 ML PO DAILY PRN PRN For Nausea Objective Findings Exam Vital Sign - Last Date Time Temp Pulse Resp B/P Pulse Ox O2 Delivery O2 Flow Rate FiO2 09/10/16 15:00 36.5 53 18 158/50 91 Nasal Cannula 8.00 Intake and Output 09/09/16 09/09/16 09/10/16 Cumulative From/Thru 14:59 22:59 06:59 09/09/16 17:06 - 09/10/16 06:48 Intake Total 952 ml 952 ml Output Total 400 ml 400 ml Balance 552 ml 552 ml Intake Oral 600 ml 600 ml IV Total 352 ml 352 ml Output Urine Total 400 ml 400 ml General: Oriented, Person, Place, Other (confused with intermittent hallucinations, appears alert and speaks with provider, but does not remember what is discussed.) HEENT: Atraumatic, EOMI, Scleral Anicteric, Mucous Membr Moist/Athena Heart: Normal S1, S2, Dysrhythmia Present, Systolic Murmur Lungs: Clear to Auscultation, Diminished Abdomen: Benign Neuro: Arousable, Follows Commands, Spontaneous Eye Opening, Weakness Extremities: Warm, No Edema Lab/Diagnostics Lab and Diagnostics 09/10/16 0310 X-RAY CHEST ONE VIEW, PORTABLE (Dictated by: Armida Almaraz M.D. on 09/09/2016 at 17:31) FINDINGS: -Surgical changes and devices: None. -Lungs and pleura: Lateral interstitial and air space infiltrates are compatible with pulmonary edema. No pleural effusions or pneumothorax. -Mediastinum: Mediastinal contours appear normal. Heart size is markedly increased. -Bones and chest wall: No suspicious bony lesions. Overlying soft tissues appear unremarkable. IMPRESSION: Congestive heart failure. Marked cardiomegaly. Time spent Total time 90 minutes; >50% face to face with patient and/or family, providing counselling regarding plans and recommendations, and in care coordination with his/her medical teams. I also spent an additional 60 minutes counseling for advanced care planning with the patient/the patients family/the surrogate decision maker. Hanane Person MD Procedures XRay, CTs & MRIs X-RAY CHEST ONE VIEW, PORTABLE (Dictated by: Armida Almaraz M.D. on 09/09/2016 at 17:31) FINDINGS: -Surgical changes and devices: None. -Lungs and pleura: Lateral interstitial and air space infiltrates are compatible with pulmonary edema. No pleural effusions or pneumothorax. -Mediastinum: Mediastinal contours appear normal. Heart size is markedly increased. -Bones and chest wall: No suspicious bony lesions. Overlying soft tissues appear unremarkable. IMPRESSION: Congestive heart failure. Marked cardiomegaly. Approved by: Armida Almaraz M.D. on 09/09/2016 at 17:32 Cardiac Echo Impression [facility] Diagnostic [place] [address] Patient Name: MYAH KOEHLER MR#: [id number] Location: CCU Ordering Phys: Titus Harkins DO Date of Service: 09/09/16 1703 [facility] [address] [place] [address] Echocardiogram Report Name: MYAH KOEHLER LStudy Date: 10/2016 Height: 64 in Hospital Exam Location: [facility] Weight: 166 lb Gender: Female BSA: 1.8 m2 : 1945 Age: 71 yrs BP: 152/50 mmHg Reason For Study: Pericardial Effusion Performed By: Cory Claros Referring Physician: TITUS HARKINS Interpretation Summary 1) Large circumferential pericardial effusion present. 2) Significant respiratory variation of the mitral inflow, late diastolic to early systolic right atrial collapse, and early diastolic right ventricular inadequate filling suggests tamponade. 3) Grossly hyperdynamic left ventricular function. 4) Grossly normal right ventricular size with mildly to moderately reduced function. 5) No prior Echo available for comparison. Procedure: A two-dimensional transthoracic echocardiogram with color flow and Doppler was performed. The echocardiogram started as a ltd study for pericardial effusion and evolved into a complete study. Comparison is made with the echocardiogram of 06/16/15. The patient was in sinus bradycardia with heart rates between 39-46 bpm during the exam. Left Ventricle: The left ventricular cavity is small. There is mild concentric left ventricular hypertrophy. The echo findings are consistent with moderate dynamic left ventricular intracavitary obstruction. The ejection fraction is estimated to be >80%. The left ventricle is hyperdynamic. There are no obvious focal wall motion abnormalities noted but poor endocardial definition reduces the sensitivity for the detection of such. Spectral Doppler of the mitral valve is reversed, with an E/A wave ratio < 1.0. Right Ventricle: The right ventricle is normal size. Right ventricular systolic function is mild to moderately reduced. Atria: The left atrium is moderately dilated. Right atrial size is normal. The interatrial septum is intact with no evidence for an atrial septal defect. Mitral Valve: The mitral valve leaflets are mildly calcified. There is mild to moderate mitral annular calcification. There is mild mitral regurgitation. Aortic Valve: The aortic valve is grossly normal. No aortic regurgitation is present. Tricuspid Valve: The tricuspid valve is not well visualized, but is grossly normal. There is mild tricuspid regurgitation. There is pre-systolic TR. The right ventricular systolic pressure is estimated at 38 mmHg assuming a right atrial pressure of 8 mm Hg. Pulmonic Valve: The pulmonic valve leaflets are thin and pliable; valve motion is normal. There is moderate pulmonic regurgitation. Great Vessels: The aortic root is normal size. The dimensions of the ascending aorta are normal. Moderate pulmonary artery dilation. The IVC is dilated (diameter is greater than 2.1 cm) yet it collapses greater than 50% with a sniff. This suggests a right atrial pressure of 8 mm Hg. Pericardium/ Pleura There is a large pericardial effusion noted. Significant respiratory variation of the mitral inflow, late diastolic to early systolic right atrial collapse, and early diastolic right ventricular inadequate filling suggests tamponade. There is no pleural effusion. MMode/2D Measurements & Calculations LVIDd: 3.7 cm RA long axis LVOT diam LVIDs: 2.0 cm LA A2 area: 23.7 cm FS: 45.3 % LA A4 area: 24.2 cm RA area Ao root diam IVSd: 0.99 cm LA length (vol): 6.2 cm LVPWd: 1.0 cm LA vol: 78.4 ml : 16.6 cm asc Aorta LA vol index RA vol: 42.7 mlDiam: 2.8 cm RA : 23.6 mm2 IVC diam: 2.3 cm LV parada. diameter/BSA LV sys. diameter/BSA (cm/m^2): 2.0 (cm/m^2): 1.1 Doppler Measurements & Calculations Ao V2 max MV E max juan david MV E/A: 0.66 TR max juan david : 273.7 cm/sec : 145.3 cm/sec : 275.9 cm/sec Ao max PG MV A max juan david TR max P.4 mmHg : 30.0 mmHg : 219.2 cm/sec Ao mean PG : 16.0 mmHg LVOT Max Juan David : 168.3 cm/sec ROSA(I,D): 2.5 cm sev ratio MV dec time Ao V2 mean LV V1 max PG ROSA indexed to BSA : 0.53 sec : 187.4 cm/sec (cm^2/m^2): 1.4 Ao V2 VTI: 51.9 cm LV V1 VTI ROSA(V,D): 1.9 cm2 : 40.6 cm Reading Physician:09:31 AM ADDENDUM [address] [address] Echocardiogram Report Name: MYAH KOEHLER LStudy Date: 10/2016 Height: 64 in Hospital Exam Location: [facility] Weight: 166 lb Gender: Female BSA: 1.8 m2 : 1945 Age: 71 yrs BP: 152/50 mmHg Reason For Study: Pericardial Effusion Performed By: Cory Claros Referring Physician: TITUS HARKINS Interpretation Summary 1) Large circumferential pericardial effusion present. 2) Significant respiratory variation of the mitral inflow, late diastolic to early systolic right atrial collapse, and early diastolic right ventricular inadequate filling suggests tamponade. 3) Grossly hyperdynamic left ventricular function. 4) Grossly normal right ventricular size with mildly to moderately reduced function. 5) No prior Echo available for comparison. Procedure: A two-dimensional transthoracic echocardiogram with color flow and Doppler was performed. The echocardiogram started as a ltd study for pericardial effusion and evolved into a complete study. Comparison is made with the echocardiogram of 06/16/15. The patient was in sinus bradycardia with heart rates between 39-46 bpm during the exam. Left Ventricle: The left ventricular cavity is small. There is mild concentric left ventricular hypertrophy. The echo findings are consistent with moderate dynamic left ventricular intracavitary obstruction. The ejection fraction is estimated to be >80%. The left ventricle is hyperdynamic. There are no obvious focal wall motion abnormalities noted but poor endocardial definition reduces the sensitivity for the detection of such. Spectral Doppler of the mitral valve is reversed, with an E/A wave ratio < 1.0. Right Ventricle: The right ventricle is normal size. Right ventricular systolic function is mild to moderately reduced. Atria: The left atrium is moderately dilated. Right atrial size is normal. The interatrial septum is intact with no evidence for an atrial septal defect. Mitral Valve: The mitral valve leaflets are mildly calcified. There is mild to moderate mitral annular calcification. There is mild mitral regurgitation. Aortic Valve: The aortic valve is grossly normal. No aortic regurgitation is present. Tricuspid Valve: The tricuspid valve is not well visualized, but is grossly normal. There is mild tricuspid regurgitation. There is pre-systolic TR. The right ventricular systolic pressure is estimated at 38 mmHg assuming a right atrial pressure of 8 mm Hg. Pulmonic Valve: The pulmonic valve leaflets are thin and pliable; valve motion is normal. There is moderate pulmonic regurgitation. Great Vessels: The aortic root is normal size. The dimensions of the ascending aorta are normal. Moderate pulmonary artery dilation. The IVC is dilated (diameter is greater than 2.1 cm) yet it collapses greater than 50% with a sniff. This suggests a right atrial pressure of 8 mm Hg. Pericardium/ Pleura There is a large pericardial effusion noted. Significant respiratory variation of the mitral inflow, late diastolic to early systolic right atrial collapse, and early diastolic right ventricular inadequate filling suggests tamponade. There is no pleural effusion. MMode/2D Measurements & Calculations LVIDd: 3.7 cm RA long axis LVOT diam LVIDs: 2.0 cm LA A2 area: 23.7 cm FS: 45.3 % LA A4 area: 24.2 cm RA area Ao root diam IVSd: 0.99 cm LA length (vol): 6.2 cm LVPWd: 1.0 cm LA vol: 78.4 ml : 16.6 cm asc Aorta LA vol index RA vol: 42.7 mlDiam: 2.8 cm RA : 23.6 mm2 IVC diam: 2.3 cm LV parada. diameter/BSA LV sys. diameter/BSA (cm/m^2): 2.0 (cm/m^2): 1.1 Doppler Measurements & Calculations Ao V2 max MV E max juan david MV E/A: 0.66 TR max juan david : 273.7 cm/sec : 145.3 cm/sec : 275.9 cm/sec Ao max PG MV A max juan david TR max P.4 mmHg : 30.0 mmHg : 219.2 cm/sec Ao mean PG : 16.0 mmHg LVOT Max Juan David : 168.3 cm/sec ROSA(I,D): 2.5 cm sev ratio MV dec time Ao V2 mean LV V1 max PG ROSA indexed to BSA : 0.53 sec : 187.4 cm/sec (cm^2/m^2): 1.4 Ao V2 VTI: 51.9 cm LV V1 VTI ROSA(V,D): 1.9 cm2 : 40.6 cm Reading Physician:09:31 AM Report status: Addendum Brief History 71-year-old woman history of crest syndrome with pulmonary fibrosis since 2005, colon cancer, and suspected pericardial effusion admitted with failure to thrive. Patient has delirium and is unable to provide a clear story at the time of admission last night (09/09). Patient's daughter, Margie, states that she is the DPOA and takes care of her mother. Patient was diagnosed with crest syndrome about 11 years ago. She has slowly declined over time. About a year ago, she was diagnosed with colon cancer based on a CT scan done in [place]. She was also noted to have a pericardial effusion at that time. Per daughter, pericardiocentesis was not done as the pericardial effusion was felt to be posterior. Over the past 6 months, patient has had significant decline in her overall function and is unable to take care of her ADLs. About 3 weeks ago, she fell and has been needing constant care by her daughter. She is now living with her daughter. Patient's primary complaints are dyspnea and fatigue. Hospital Course Myah Koehler is a 71 -year-old female with history of CREST syndrome, pulmonary fibrosis with pulmonary attention, recently diagnosed colon cancer, and hypothyroidism transferred to [facility] from [facility] with concern for cardiac tamponade. She presented with complain of worsening shortness of breath and found to have 3rd degree atrioventricular block and a large pericardial effusion but no evidence of cardiac tamponade. Admitted to the critical care unit and cardiology consulted for potential pacemaker placement. 1. 3rd degree atrioventricular block, present on admission. Active -Cardiology consulted. Initially the plan was to have a pacemaker placed. However, since patient's life expectancy is not promising due to colon cancer in patient's refusal to undergo any treatment for it, cardiology did not seem to be inclined to have a pacemaker placed. Palliative care has met with the patient and the family. Patient is now DO NOT RESUSCITATE DO NOT INTUBATE only with comfort care. Ativan, vicodin, acetaminophen, zofran, dilaudid by mouth as needed for comfort. - Per Palliative care, patient does not want us to start a continuous IV opiate infusion, if there is no urgent/emergent issue making patient uncomfortable. If pt has a critical heart arrhythmia or cardiac arrest--> the plan should be to start an opiate infusion (dilaudid or fentanyl) as she has a TRUE ALLERGY to morphine (hives). 2. Pericardial effusion, present on admission. Active. - See above 4. Colon Cancer diagnosed via CT in 10/2015 3. 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 Presumed stable. 5. Chronic hypothyroidism, present on admission. Presumed stable. 6. Chronic GERD, present on admission. Stable 7. Chronic hypertension, present on admission. Stable. 8. Chronic hyperlipidemia, present on admission. Presumed stable. 9. Chronic vertigo, present on admission. Stable Please see documentation from palliative care and cardiology. Patient made ' comfort care' and transferred to the 3rd floor. During the night patient became more restless and a Morphine Drip was started and patient made more comfortable. Patient did at 7:30 AM,, cause of would be complete heart block, etc. Exam Vital Signs (Last) Date Time Temp Pulse Resp B/P Pulse Ox O2 Delivery O2 Flow Rate FiO2 09/11/16 06:38 30 09/10/16 21:32 Nasal Cannula 4.00 09/10/16 15:00 36.5 53 158/50 91 Exam Patient comfortable not suffering. Respitory rate low, almost agonal cardiac regular 40's Test 09/09/16 17:12 09/09/16 21:42 09/09/16 21:47 09/10/16 03:10 Troponin T < 0.010ug/L (0.0-0.011) Hold Rodriguez Top Tube Received (Received) Hold Urine Received (Received) Urine Color Yellow (YELLOW) Urine Appearance Clear (CLEAR,HAZY) Urine pH 5.5 (5.0-8.0) Urine Specific Davis 1.020 (1.003-1.035) Urine Protein Negativemg/dL (NEG,TRACE) Urine Glucose (UA) Negativemg/dL (NEGATIVE) Urine Ketones 15mg/dL (NEGATIVE) Urine Occult Blood Negative (NEGATIVE) Urine Nitrite Negative (NEGATIVE) Urine Bilirubin Negative (NEGATIVE) Urine Urobilinogen Normalmg/dL (NORMAL) Urine Leukocyte Esterase Negative (NEGATIVE) Urine RBC 0-2/hpf (0-2) Urine WBC 0-5/hpf (0-5) Urine Epithelial Cells Few/hpf (NONE-MOD) Urine Crystals None seen (NONE SEEN) Urine Bacteria Few/hpf (NONE-FEW) Urine Hyaline Casts None/lpf (NONE) Urine Granular Casts None seen (NONE SEEN) Urine Waxy Casts None seen (NONE SEEN) Urine Red Blood Cell Casts None seen (NONE SEEN) Urine White Blood Cell Casts None seen (NONE SEEN) Urine Mucus None seen (None Seen) Urine Trichomonas None seen (NONE SEEN) Urine Yeast None (NONE SEEN) Urinalysis Comment None Urine Culture Reflexed Not indicated White Blood Count 8.2th/mm3 (3.8-10.1) Red Blood Count 4.59mil/mm3 (3.90-5.20) Hemoglobin 12.2g/dL (12.0-15.6) Hematocrit 39.2% (35.0-46.0) Mean Corpuscular Volume 85.4fL (81-100) Mean Corpuscular Hemoglobin 26.6pg (27.0-35.0) Mean Corpuscular Hemoglobin Concent 31.1% (32.0-37.0) Red Cell Distribution Width 15.9% (12.3-15.4) Platelet Count 349bil/L (150-400) Neutrophils (%) (Auto) 71.3% (40-74) Lymphocytes (%) (Auto) 14.0% (14-46) Monocytes (%) (Auto) 10.3% (4-12) Eosinophils (%) (Auto) 3.5% (0-5) Basophils (%) (Auto) 0.5% (0-3) Sodium Level 142mEq/L (134-144) Potassium Level 4.3mEq/L (3.5-5.2) Chloride Level 107mEq/L (97-108) Carbon Dioxide Level 20mmol/L (18-29) Blood Urea Nitrogen 13mg/dL (8-27) Creatinine 0.76mg/dL (0.57-1.00) Estimat Glomerular Filtration Rate 108mL/min (>59) Glucose Level 129mg/dL (60-99) Hemoglobin A1c 6.8% (4.8-5.6) Calcium Level 9.7mg/dL (8.5-10.1) Magnesium Level 1.9mg/dL (1.6-2.6) Total Bilirubin 0.3mg/dL (0.0-1.2) Aspartate Amino Transf (AST/SGOT) 15U/L (0-50) Alanine Aminotransferase (ALT/SGPT) 22U/L (0-32) Alkaline Phosphatase 69U/L (25-165) Total Protein 6.5g/dL (6.4-8.4) Albumin 3.8g/dL (3.4-5.0) Thyroid Stimulating Hormone (TSH) 8.370uIU/mL (0.450-4.500) Free Thyroxine 1.38ng/dL (0.82-1.77) Discharge Medications Discharge Medications Ambrisentan (Letairis) 10 Mg Tablet 10 MG PO HS (Reported) Aspirin (Aspirin) 81 Mg Tablet 81 MG PO HS (Reported) Atorvastatin (Lipitor) 10 Mg Tab 10 MG PO HS (Reported) Calcium Carbonate (Calcium) 600 Mg Tablet 600 MG PO DAILYWM (Reported) Cranberry Conc/C/Bacill Coag (Cranberry Tablet) 1 Each Tablet 12 EACH PO QAM ( Reported) Esomeprazole Magnesium (Nexium) 40 Mg Capsule.dr 40 MG PO BIDWM (Reported) Folic Acid (Folic Acid) 1 Mg Tablet 1 MG PO QAM (Reported) Levothyroxine (Levothyroxine) 75 Mcg Tablet 75 MCG PO QAM (Reported) Multivitamin (Multivitamins) 1 Each Capsule 1 EACH PO DAILYWM (Reported) Mycophenolate Mofetil (Mycophenolate Mofetil) 500 Mg Tablet 500 MG PO BID ( Reported) Nifedipine ER (Nifedipine ER) 60 Mg Tab.er.24 60 MG PO HS (Reported) Potassium Chloride ER (Potassium Chloride ER) 10 Meq Tablet 30 MEQ PO DAILYWM ( Reported) Potassium 30 meq in AM and 20 meq in PM Potassium Chloride ER (Potassium Chloride ER) 10 Meq Tablet 20 MEQ PO DAILYWD ( Reported) Potassium 30 meq in AM and 20 meq in PM Prednisone (PredniSONE) 5 Mg Tab 5 MG PO QAM (Reported) Spironolactone (Spironolactone) 25 Mg Tablet 25 MG PO QAM (Reported) Tadalafil (Adcirca) 20 Mg Tablet 40 MG PO HS (Reported) Torsemide (Torsemide) 10 Mg Tablet 5 MG PO QAM (Reported) Trazodone (Trazodone) 100 Mg Tablet 100 MG PO HS (Reported) Treprostinil Diolamine (Orenitram ER) 1 Mg Tablet.er 2 MG PO TID (Reported) As needed Hydrocodone-Acetaminophen 5-325 mg (Hydrocodone-Acetaminophen 5-325 mg) 1 Each Tablet 2 EACH PO DAILY PRN PRN For Pain (Reported) Promethazine HCl/Codeine (Prometh-Codein 6.25-10 mg/5 ml) 6.25 Mg-10 Mg/5 Ml (5 Ml) Syrup 10 ML PO DAILY PRN PRN For Nausea (Reported) Zaina Lr MD Sep 11, 2016 13:29
== END 2016-09-11 07:30 | disposition expired | DRG 309 ==
LOC: SED 16:44 → EDBD 16:44 → EDUNIT# 16:44 → CCU 18:06 → PCC 09-10 17:01 → MPC 09-10 18:42
PROVIDERS: ADMIT Internal Medicine; ATTEND Internal Medicine
DX: I44.2 Atrioventricular block, complete (principal); I31.9 Disease of pericardium, unspecified; C18.9 Malignant neoplasm of colon, unspecified; Z79.82 Long term (current) use of aspirin; Z79.52 Long term (current) use of systemic steroids; M34.1 CR(E)ST syndrome; E03.9 Hypothyroidism, unspecified; K21.9 Gastro-esophageal reflux disease without esophagitis; E78.5 Hyperlipidemia, unspecified; R42 Dizziness and giddiness; Z51.5 Encounter for palliative care; Z66 Do not resuscitate; R62.7 Adult failure to thrive